=== PATIENT | female | born 1985 | race African-American/Black ===

== ENCOUNTER 2019-02-17 14:51 | Inpatient (IN) | payer OTHER ==
[~2019-02-17] VITALS: Ht 177.8 cm; Wt 231.3 kg
[2019-02-17 15:15] VITALS: BP_SYST 98
--- NOTE | 2019-02-17 15:15 | NUR ---
Patient to ER bed 5 to on hospital bed gown for evaluation. Side rails up. Report given to ROSE MARIE Howell.
--- NOTE | 2019-02-17 15:30 | NUR ---
Patient presented to ER with c/o left lower leg pain. Patient A&Ox4, afebrile, skin pink and warm, BIB BLS from [facility], Pain 2/10 left lower leg wound, denies, N/V/D, toes pink and warm. PAtient states she wants to be evaluated for Wound care management and pain management . Patient had left lower leg George procedure.
--- NOTE | 2019-02-17 15:31 | NUR ---
ER Dr. Anders at bedside examining patient.
[2019-02-17 17:42] LABS: BASOPHILS # (AUTO) 0.1 K/uL (0.0-0.2); BASOPHILS % (AUTO) 0.6 % (0.0-2.0); EOSINOPHILS # (AUTO) 0.3 K/uL (0.0-0.4); MEAN CORPUSCULAR HEMOGLOBIN 24 pg (27-31); MEAN CORPUSCULAR HGB CONC 32 % (32-36); NEUTROPHILS # (AUTO) 5.5 K/uL (1.8-7.7); WHITE BLOOD COUNT (AUTO) 9.2 K/uL (4.8-10.8)
[2019-02-17 17:48] LABS: CREATININE 1.09 mg/dL (0.55-1.30); POTASSIUM 3.7 mmol/L (3.5-5.1)
[2019-02-17 17:52] LABS: PROTHROMBIN TIME 10.5 SECS (9.5-12.5)
[2019-02-17 17:56] LABS: EOSINOPHILS % (AUTO) 2.9 % (0.0-4.0); HEMOGLOBIN 8.6 g/dL (12.0-16.0); LYMPHOCYTES # (AUTO) 2.6 K/uL (1.0-5.5); LYMPHOCYTES % (AUTO) 28.2 % (20.5-51.5); MEAN CORPUSCULAR VOLUME 76 fL (79.0-98.0); MONOCYTES # (AUTO) 0.8 K/uL (0.0-1.0); MONOCYTES % (AUTO) 8.8 % (1.7-9.3); NEUTROPHILS % (AUTO) 59.5 % (40.0-70.0); PLATELET COUNT (AUTO) 499 K/uL (130-430); RED BLOOD CELL COUNT(AUTO) 3.57 MIL/uL (4.2-6.2); RED CELL DISTRIBUTION WIDTH 20.5 % (9.0-15.0)
[2019-02-17 18:03] LABS: ALBUMIN 2.1 g/dL (3.4-4.8); TOTAL BILIRUBIN 0.6 mg/dL (0.0-1.0)
--- NOTE | 2019-02-17 18:23 | NUR ---
PT reports 10/10 pain to R lower leg and requests pain medication. Dr. Anders notified.
[2019-02-17] MEDS ORDERED: DIPHENHYDRAMINE INJ 50 MG/ML VIAL IVP ONE (19:00)
[2019-02-17] MEDS ORDERED: MORPHINE 4 MG/ML INJ. SYRINGE IVP ONE (19:00)
--- NOTE | 2019-02-17 19:02 | NUR ---
Pain medication given per order, patient A&Ox4.
--- NOTE | 2019-02-17 19:13 | NUR ---
Report given to Jimmie TROTTER
[2019-02-17] MEDS ORDERED: LEVOFLOXACIN 500 MG/D5W 100 ML IV ONE (19:30)
[2019-02-17] MEDS ORDERED: HYDR1SYR7 IJ (19:37)
[2019-02-17] MEDS ORDERED: GABA300S PO (19:38)
[2019-02-17] MEDS ORDERED: DOCU250C71 PO (19:38)
[2019-02-17] MEDS ORDERED: NORT10CA PO (19:39)
--- NOTE | 2019-02-17 19:40 | NUR ---
Medication reconciliation completed with information provided by patient. Any prior medication reconciliation on file was reviewed and corrected.
--- NOTE | 2019-02-17 19:45 | NUR ---
Note dhaval in EDM - 02/17/19 at 2155 by [email or web address] Patient will be admitted to care of A Paliwal. Admitted to MST unit. Will call for bed. Belongings list completed. Summary report printed. Report will be given at bedside.
--- NOTE | 2019-02-17 19:50 | NUR ---
Note dhaval in ED - 02/17/19 at 2155 by [email or web address] Pt on tele hold at this time dur to no staffing on MST. Will cont to monitor pt.
--- NOTE | 2019-02-17 19:50 | NUR ---
Pt on tele hold at this time due to no staffing on MST. Will cont to monitor pt.
--- NOTE | 2019-02-17 20:00 | NUR ---
Pt refusing US at this time. BERNARD BARBA made aware.
--- NOTE | 2019-02-17 21:45 | NUR ---
Pt will be admitted to bed 106 on [facility].
[2019-02-17] MEDS ORDERED: ACETAMINOPHEN 325 MG TABLET PO PRN (22:45)
[2019-02-17] MEDS ORDERED: MORPHINE 2 MG/ML INJ. SYRINGE IVP PRN (22:45)
[2019-02-17] MEDS ORDERED: HYDROcodone/ACETAMIN 10-325 MG TAB PO PRN (22:45)
[2019-02-17] MEDS ORDERED: LORazepam 2 MG/ML VIAL IVP PRN (22:45)
[2019-02-17] MEDS ORDERED: HYDROcodone/ACETAMIN 5-325 MG TAB (NORCO/ VICODIN) PO PRN (22:45)
[2019-02-17] MEDS ORDERED: ONDANSETRON HCL 4 MG/2 ML VIAL IVP PRN (22:45)
--- NOTE | 2019-02-17 22:48 | NUR ---
Transfer to [facility] via ACLS protocol. Licensed nurse present. IV present no signs or symptoms of infiltration. No signs of acute distress or discomfort noted.
--- NOTE | 2019-02-17 22:48 | NUR ---
ADMISSION: The patient, LATRICE COREAS, 33 y/o, F admitted by JENNIFER JACOBO MD, was given written information regarding hospital policies, unit procedures and contact persons.
--- NOTE | 2019-02-17 23:01 | NUR ---
Romel Zelaya Dr. s/w Jo Ann
[2019-02-17] MEDS ORDERED: HYDROmorphone 1 MG INJ. 1 MG/ML AMPUL IVP PRN (23:15)
[2019-02-17 23:30] VITALS: BP_SYST 99
[2019-02-17] MEDS: D5/0.45 NS 1,000 ML IV SCH (23:55)
[2019-02-18] MEDS ORDERED: CLINDAMYCIN 600 MG in D5W 50 ML IV SCH ×2
--- NOTE | 2019-02-18 00:10 | NUR ---
Pt stated she is resistant to Clindamycin and refused it. Pt stated she can take Vancomycin, Cipro and Meropenem. Pt was informed Dr. Lopez would be paged.
--- NOTE | 2019-02-18 00:12 | NUR ---
PageRomel Cruz Dr. s/w Albino
[2019-02-18 00:25] VITALS: BP_SYST 99
--- NOTE | 2019-02-18 00:29 | NUR ---
Dr. Lopez called back and was informed pt refused Clindamycin and also stated she can receive Vancomycin, Cipro and Meropenem. Dr. Lopez ordered IV Levaquin.
[2019-02-18 00:40] VITALS: BP_SYST 114
[2019-02-18] MEDS: HYDROmorphone 2 MG/ML VIAL IVP PRN ×6 (00:47→23:30)
--- NOTE | 2019-02-18 00:47 | NUR ---
Pt was crying out loud c/o 10/10 pain in left leg. Dilaudid 2mg was given IVP with relief. IVF is infusing well via SONIA PICC. Fall and safety precautions are in place.
--- NOTE | 2019-02-18 01:00 | NUR ---
Pt was assisted in transferring from regular hospital bed to air mattress bed that was ordered by smokehouse operator. Pt initially refused to transfer to the air mattress bed, stating the fabric irritates her skin and she gets boils from it. Pt stated the only way she would get on the bed is to cover the bed completely with 2 flat sheets and 2 blankets with the sheets and blankets tucked underneath the bed. physical therapy supervisor Helene was notified and Helene stated it is okay to cover the bed per pt's request. RN and ADULT SERVICES LIBRARIAN covered the air mattress bed with 2 flat sheets and 2 blankets and then tucked them underneath the bed before assisting pt with the transfer to the air mattress.
[2019-02-18] MEDS ORDERED: LEVOFLOXACIN 500 MG/D5W 100 ML IV ONE (01:14)
--- NOTE | 2019-02-18 01:30 | NUR ---
Photo of left leg wound was taken, followed by wound care. Wound has multiple areas of pinkish, reddish and blackish tissues. Moderate amount of light pinkish and yellowish drainage noted. No odor noted. Wound was cleansed with normal saline and pat dried. Multiple Oil emulsion gauze dressings were applied due to the large size of the wound, followed by multiple ABD pads. Wound was then wrapped with six large Kristen wraps. Pt was premedicated with IV Dilaudid prior to dressing change.
--- NOTE | 2019-02-18 04:02 | NUR ---
CONSULTATION PAGED/CALLED Reason for Consultation: WOUND INFECTION Person Who was Notified: TWAN Consulting Physician: LEAH Lining Closer Specialty: ID Ordering Physician: Андрей JACOBO
--- NOTE | 2019-02-18 06:14 | NUR ---
Pt c/o left leg pain and was crying out loud. Pt stated pain is 8/10. Dilaudid 2mg was given IV with relief. Fall and safety precautions are in place.
--- NOTE | 2019-02-18 06:50 | NUR ---
Pt is awake and resting in bed without any distress noted. All pt's needs were attended to. Will endorse to day shift nurse.
--- NOTE | 2019-02-18 07:15 | NUR ---
sbar report received at the bedside. patient aaox 4. morbid obese. vitals signs stable. afebrile. breathing even and unlabored. abdomen soft and non distended. has picc line on the rt upper arm 2 lumen dry/intact. has bariatric bed in low position, alarmed and locked. call lights within reach. has dressing on the left leg. dry and intact.
[2019-02-18] MEDS: DOCUSATE SODIUM 250 MG CAPSULE PO SCH ×2 (09:27→21:30)
--- NOTE | 2019-02-18 09:30 | NUR ---
patient refused to be changed at this time. said later.
[2019-02-18] MEDS: D5/0.45 NS 1,000 ML IV SCH ×3 (10:05→23:45)
[2019-02-18 10:49] LABS: BASOPHILS % (AUTO) 0.5 % (0.0-2.0); EOSINOPHILS # (AUTO) 0.4 K/uL (0.0-0.4); HEMATOCRIT 24.4 % (36-48); HEMOGLOBIN 7.7 g/dL (12.0-16.0); LYMPHOCYTES # (AUTO) 2.1 K/uL (1.0-5.5); LYMPHOCYTES % (AUTO) 30.3 % (20.5-51.5); MEAN CORPUSCULAR HEMOGLOBIN 24 pg (27-31); MEAN CORPUSCULAR HGB CONC 32 % (32-36); MEAN CORPUSCULAR VOLUME 76 fL (79.0-98.0); MONOCYTES # (AUTO) 0.8 K/uL (0.0-1.0); MONOCYTES % (AUTO) 11.1 % (1.7-9.3); NEUTROPHILS # (AUTO) 3.8 K/uL (1.8-7.7); NEUTROPHILS % (AUTO) 53.1 % (40.0-70.0); PLATELET COUNT (AUTO) 427 K/uL (130-430); RED BLOOD CELL COUNT(AUTO) 3.23 MIL/uL (4.2-6.2); RED CELL DISTRIBUTION WIDTH 20.7 % (9.0-15.0); WHITE BLOOD COUNT (AUTO) 7.1 K/uL (4.8-10.8)
[2019-02-18 11:12] LABS: CALCIUM 7.5 mg/dL (8.4-11.0); CREATININE 0.84 mg/dL (0.55-1.30); PHOSPHORUS 4.6 mg/dL (2.7-4.5); POTASSIUM 3.6 mmol/L (3.5-5.1)
--- NOTE | 2019-02-18 12:30 | NUR ---
DC Planning: Phoned and faxed pt infor to [facility] transfer ctr ,attn Rubi tel #[phone]. Per Rubi: she will present the case to dr. Taz Griffith and will call back this PM to update the admission status. She warns that [facility] is very full today but will take the pt becuase she is our client. CM to f/u.
[2019-02-18 12:36] VITALS: BP_SYST 106
--- NOTE | 2019-02-18 14:00 | NUR ---
patient resting and stable.
--- NOTE | 2019-02-18 15:05 | NUR ---
Dietitian Recommendations *Recommend Cardiac diet w/ Alberto BID and Ensure Enlive BID. ONS and modulars will provide additional 860 kcal, 45 gm protein daily. *Encourage pt to increase PO intake. Please see nutritional assessment for details. GEROGIA, RD
--- NOTE | 2019-02-18 16:11 | NUR ---
WOUND EVALUATION: Wound Consult received from Dr. Romel Lopez. Thank you, Dr. Lopez, for the consult. Patient received in a Compella Bariatric Bed with a low air-loss mattress, asleep (alert and oriented when awoke). Patient is able to turn independently. Galindo Score is a 16. 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 Recent Labs: WBC 7.1, RB.23, hemoglobin 7.7, hematocrit 24.4, glucose 114, calcium 7.5, phosphorus 4.6, albumin 2.1. Microbiology: Blood results in progress. mRSA screen results in progress. Intrinsic factors that delay wound healing: Lymphedema, Hypoalbuminemia. Extrinsic factors that delay wound healing: Decreased mobility. Wound Assessment: 1. 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 Wound bed has 85% red tissue, 15% yellow tissue. No odor, no drainage. Bijal-wound intact. multiple islands of skin growth present throughout extremity. Measures 35.5 cm by approximately 50.0 cm (wound area covers entire circumference of calf; Width estimated at 50.0 cm secondary to patient was in pain and moving leg constantly). Recommend: Cleanse wound with normal saline. Apply SurePrepto bijal-wound. Cover with foam dressing. Perform wound care daily, and as needed for dressing soiling or dislodgement. Also recommend: Encourage and assist patient as needed with repositioning every 2 hours with pillow support and off-load pressure areas with pillows for pressure re-distribution. Offload, elevate and float bilateral heels with pillows. Perform skin care and monitor skin integrity Q shift. Use moisture barrier cream on buttocks and other moisture susceptible areas QID and as needed for soiling. Maintain patient on a low air-loss mattress. Addendum: 02/24/19 at 1520 by Leonardo Acevedo RN Error. Wound Care orders should be: (Pre-medicate for wound care) 1. Cleanse wound with normal Saline. 2. Apply SurePrep to bijal-wound. 3. Cover wound with Oil Emulsion dressings. 4. Cover with ABD pads. 5. Wrap with jonatan wrap. 6. Wrap from toes to knee with judd bandage (1/3 overlap). Perform wound care daily, and prn for dressing soiling or dislodgment.
--- NOTE | 2019-02-18 16:15 | NUR ---
[facility] CAME AND EVALUATE THE WOUND ON THE LEFT LEG. DRESSING DONE.
[2019-02-18 16:45] VITALS: BP_SYST 110
[2019-02-18] MEDS ORDERED: VANCOMYCIN HCL 1 GM/NS PREMIX 250 ML IV ONE (17:00)
--- NOTE | 2019-02-18 18:03 | NUR ---
PATIENT HAS A VISITOR AT THE BEDSIDE.
--- NOTE | 2019-02-18 19:31 | NUR ---
sbar report given to Neelima TROTTER
--- NOTE | 2019-02-18 20:00 | NUR ---
RECIEVED REPORT, A/O/X/4, RESPIRATIONS EVEN AND UNLABORED, ROOM AIR, PICC LINE WITH DOUBLE LEUMEN PATENT AND INTACT IN TIERRA, D5 1/2 NS INFUSING @ 100ML/HR IN PICCLINE,USES BEDPAN TO URINATE, ABLE TO ASSIST STAFF WITHALL ADL'S, TURNS SELF OFTEN POSSIBLE, LEFT LEG WITH DRSG IN PLACE, MEDICATED WITH DILAUDID 2MG IVP FOR C/O SHARP, SHOOTING PAINS IN LEFT LEG WOUND, TOLERATED EVENING MEAL 100%WILL CONTINUE TO MONITOR FOR ANY FURTHER S/S OF DISTRESS.
[2019-02-18] MEDS ORDERED: LEVOFLOXACIN 500 MG/D5W 100 ML IV SCH (21:00)
[2019-02-18] MEDS: DOXYCYCLINE HYCLATE 100 MG CAPSULE PO SCH (21:31)
[2019-02-19 01:24] VITALS: BP_SYST 116
[2019-02-19] MEDS: HYDROmorphone 2 MG/ML VIAL IVP PRN ×5 (03:47→21:04)
--- NOTE | 2019-02-19 04:00 | NUR ---
AWAKE C/O PAIN IN LEFT LEG MEDIATED WITH DILAUDID 2MG IVP, PAIN SCALE 10/10, LEFT LEG DRSG RE-ENFORCED WITH ABD PAD AND KERLIX, WILL CONTINUE TO MONITOR.
--- NOTE | 2019-02-19 06:47 | NUR ---
CLOSING NOTE: PATIENT RESTED OFF AND ON DURING THE NITE, STATES PAIN IS VERY BAD WHEN SHE TRIES TO MOVE ABOUT IN BED, RECIEVED TWO INJECTIONS OF DILAUDID 2 MG IVP FOR THE PAIN @ 10/10. BILATERAL DRSG REMAIN INTACT ON LOWER EXTRMITIES, PICC LINE PATENT AND INTACT IN TIERRA [facility], SCHEDULED FOR 2D ECHO THIS AM
--- NOTE | 2019-02-19 07:25 | NUR ---
sbar report at the bedside. patient asleep. has picc line on the rt upper arm. with D51/2NS 100cc/hr infusing on well. breathing even and unlabored. abdomen soft and non distended. dressing on the left leg dry and intact. bed low position, alarmed and locked. call lights within reach. will continue to monitor patients status.
[2019-02-19] MEDS: DOXYCYCLINE HYCLATE 100 MG CAPSULE PO SCH ×2 (08:23→20:24)
[2019-02-19] MEDS: DOCUSATE SODIUM 250 MG CAPSULE PO SCH ×2 (08:23→20:24)
--- NOTE | 2019-02-19 08:28 | NUR ---
DILAUDID 2MG IV GIVEN. MADE COMFORTABLE. VITALS SIGNS STABLE. AFEBRILE
--- NOTE | 2019-02-19 09:01 | NUR ---
DC Planning: f/u with [facility] transfer ctr, per Oxana, the case is being reviewed by dr. Griffith. She stated " there should not be any problem bringing the pt back, but at this time [facility] is operating at full capacity". CM to f/u for bed availability.
[2019-02-19 09:30] VITALS: BP_SYST 122
[2019-02-19] MEDS: D5/0.45 NS 1,000 ML IV SCH (12:31)
[2019-02-19 12:35] VITALS: BP_SYST 119
--- NOTE | 2019-02-19 14:15 | NUR ---
DC Planning: s/w dr. Lopez about the dcp barriers: #1. no bed available at [facility], 2. No Medicare days and the pt is on LSRV 9 days left. The pt has [facility] as secondary, 3. pt will need the md reeval for next level of care for wound care, IV abx or can be dc to snf vs. outpatient f/u at [facility] for wound management. Per the md. he will reeval for possible dc to snf. CM to f/u.
--- NOTE | 2019-02-19 15:00 | NUR ---
DC Planning: Called [facility] # [phone], s/w Brit , vendor analyst, requesting [facility]. Brit asking me to call back in 30 minutes due to her computer system is down. She was unable to create the call and get pt info. Addendum: 02/19/19 at 1642 by Kristen Lai RN Contacted [facility] transfer ctr: s/w Fernandez who will open the case and to have CM call once assigned. [facility] # [phone]. CM requesting pt transfer to [facility].
[2019-02-19 16:38] VITALS: BP_SYST 127
--- NOTE | 2019-02-19 17:05 | NUR ---
dilaudid 2 mg iv given by Kellee Charge nurse.
--- NOTE | 2019-02-19 18:04 | NUR ---
no dressing done at this time. patient said i am okay. perhaps later.
--- NOTE | 2019-02-19 19:20 | NUR ---
please follow up culture to the wound. thanks
--- NOTE | 2019-02-19 19:26 | NUR ---
endorsed to incoming nurse Orlin TROTTER
[2019-02-19 20:00] VITALS: BP_SYST 126
--- NOTE | 2019-02-19 23:06 | NUR ---
received pt on bed. talking to cellphone. no pain. stable. needs attended. call light in reach. right picc line needs new dressing change. will follow-up.
--- NOTE | 2019-02-20 00:08 | NUR ---
dressing change done to right upper arm picc line- pt tolerate well. done aseptically.
[2019-02-20 00:36] VITALS: BP_SYST 146
[2019-02-20] MEDS: HYDROmorphone 2 MG/ML VIAL IVP PRN ×6 (01:20→23:12)
[2019-02-20] MEDS: D5/0.45 NS 1,000 ML IV SCH ×3 (02:00→22:00)
--- NOTE | 2019-02-20 02:09 | NUR ---
dressing change done to left lower leg, wound culture specimen collected and send to lab. pt tolerate well. needs attended. will follow up.
--- NOTE | 2019-02-20 04:03 | NUR ---
sleeping, no distress. no sob. no pain. stable. call light in reach. safety on. will follow-up.
--- NOTE | 2019-02-20 06:04 | NUR ---
pt is awake, alert. no pain, no sob. am labs done by lab. tech. needs attended. safety on. will follow-up.
[2019-02-20 06:07] LABS: BASOPHILS # (AUTO) 0.1 K/uL (0.0-0.2); BASOPHILS % (AUTO) 0.7 % (0.0-2.0); EOSINOPHILS # (AUTO) 0.4 K/uL (0.0-0.4); EOSINOPHILS % (AUTO) 4.3 % (0.0-4.0); HEMATOCRIT 23.8 % (36-48); HEMOGLOBIN 7.5 g/dL (12.0-16.0); LYMPHOCYTES # (AUTO) 2.7 K/uL (1.0-5.5); LYMPHOCYTES % (AUTO) 26.1 % (20.5-51.5); MEAN CORPUSCULAR HEMOGLOBIN 24 pg (27-31); MEAN CORPUSCULAR HGB CONC 31 % (32-36); MEAN CORPUSCULAR VOLUME 76 fL (79.0-98.0); MONOCYTES # (AUTO) 0.6 K/uL (0.0-1.0); MONOCYTES % (AUTO) 5.7 % (1.7-9.3); NEUTROPHILS # (AUTO) 6.4 K/uL (1.8-7.7); NEUTROPHILS % (AUTO) 63.2 % (40.0-70.0); PLATELET COUNT (AUTO) 446 K/uL (130-430); RED BLOOD CELL COUNT(AUTO) 3.13 MIL/uL (4.2-6.2); RED CELL DISTRIBUTION WIDTH 20.6 % (9.0-15.0)
[2019-02-20 06:51] LABS: C-REACTIVE PROTEIN QUANT 4.8 mg/dL (0-0.5); CALCIUM 7.4 mg/dL (8.4-11.0); CREATININE 0.89 mg/dL (0.55-1.30); POTASSIUM 3.7 mmol/L (3.5-5.1)
[2019-02-20 06:59] LABS: WHITE BLOOD COUNT (AUTO) 10.2 K/uL (4.8-10.8)
--- NOTE | 2019-02-20 07:20 | NUR ---
closing: pt is sleeping, no sign of pain. no sob. stable. needs attended the whole shift. call light in reach. bedside report given to am rn.
--- NOTE | 2019-02-20 08:00 | NUR ---
0800 received patient lying in bed deeply asleep buit can be arousable denies any pain at this time able to move her extremities and able to express her needs refused any Ivs she has picc line via right upper arm with 2 lumen intact and patent
[2019-02-20 08:24] LABS: ERYTHROCYTE SEDIMENTATION RATE 77 MM/HR (0-20)
--- NOTE | 2019-02-20 09:00 | NUR ---
0900 breakfast served ate good 90 % of food consumed
[2019-02-20] MEDS: DOCUSATE SODIUM 250 MG CAPSULE PO SCH ×2 (09:46→21:31)
[2019-02-20] MEDS: DOXYCYCLINE HYCLATE 100 MG CAPSULE PO SCH ×2 (09:46→21:31)
--- NOTE | 2019-02-20 10:00 | NUR ---
1000 pain med was given with relief wound dressing intact
--- NOTE | 2019-02-20 10:00 | NUR ---
1000 able to repositioned self a self murray but needs assist ti void
--- NOTE | 2019-02-20 12:00 | NUR ---
1200 Assist with bedpan needs to void needs attended to.
--- NOTE | 2019-02-20 13:31 | NUR ---
CONSULTATION PAGED REASON FOR CONSULTATION:ANEMIA WAS CONSULT CALLED?Y PERSON WHO WAS NOTIFIED:ALONDRA CONSULTING PHYSICIAN:RENAE ROSADOHASH CYCLE CONSULTANT SPECIALTY:HEMATOLOGY CYCLE CONSULTANT PHONE NUMBER:[phone] REQUESTING PHYSICIAN:JENNIFER FUCHS
--- NOTE | 2019-02-20 14:00 | NUR ---
1400 seen by manager of case awaiting for transfer to [place] for continuation of care
[2019-02-20 15:05] VITALS: BP_SYST 116
--- NOTE | 2019-02-20 16:24 | NUR ---
1600 Pain med given slept thereafter
--- NOTE | 2019-02-20 18:00 | NUR ---
1800 patient is aware that she is going to be transferred to [place] on Friday
--- NOTE | 2019-02-20 18:00 | NUR ---
1800 refused to be connected to IV
[2019-02-20 18:05] VITALS: BP_SYST 118
--- NOTE | 2019-02-20 19:00 | NUR ---
1900 report given to ki TROTTER
--- NOTE | 2019-02-20 19:30 | NUR ---
initial notes: pt is on bed, resting. no pain. not distress. wakes up when vital sign is taken. picc line to right upper arm is intact. dressing to left leg is intact. discuss to pt plan of care. pt verbalized understanding. needs attended, call light in reach. safety on. will follow-up.
[2019-02-20 19:45] VITALS: BP_SYST 111
--- NOTE | 2019-02-20 20:02 | NUR ---
VOLODYMYR LATE ENTRY DUE TO PATIENT CARE RECEIVED CALL FROM [facility] VOLODYMYR IN AM ASKING ABOUT PATIENT CONDITION. NO FOLLOW UP CALL FROM [facility] RECEIVED AFTER
--- NOTE | 2019-02-20 22:00 | NUR ---
AWAKE, WATCHING TO HER CELLPHONE. STABLE. NOT CALLING FOR PAIN AT THIS TIME.
--- NOTE | 2019-02-21 | NUR ---
sleeping, no sob. no distress. stable. call light in reach. will follow-up.
--- NOTE | 2019-02-21 02:00 | NUR ---
resting. no distress. no sob. stable. call light in reach. will follow-up.
[2019-02-21 02:33] VITALS: BP_SYST 123
[2019-02-21] MEDS: HYDROmorphone 2 MG/ML VIAL IVP PRN ×5 (03:08→20:08)
--- NOTE | 2019-02-21 04:00 | NUR ---
sleeping, no sob, no pain. stable. call light in reach. safety on. will follow up.
--- NOTE | 2019-02-21 06:00 | NUR ---
sleeping, no pain. no sob, stable. call light in reach. will follow-up.
--- NOTE | 2019-02-21 07:25 | NUR ---
closing: sleeping. no sign of pain. no sob. stable. picc line at right ua. inact. needs attended the whole shift. bedside report given to am rn.
[2019-02-21 07:50] VITALS: BP_SYST 114
--- NOTE | 2019-02-21 07:50 | NUR ---
INITIAL ROUNDS Received pt AAOx4, no s/s resp distress, c/o pain to LLE-will check on pain medications. Pt declining IVF, pt educated on the purpose for IVF, pt stated she will drink plenty of p.o. fluids-will inform MD. LLE elevated on a pillow, dressing clean, dry and intact. Plan of care for the day reviewed with pt-pt verbalized her understanding. Pain management, disease process, skin and safety discussed-teach back done. Pt on specialty bed with air mattress. Call light within reach.
[2019-02-21] MEDS: D5/0.45 NS 1,000 ML IV SCH ×2 (08:00→17:35)
[2019-02-21 08:24] LABS: BASOPHILS # (AUTO) 0.1 K/uL (0.0-0.2); BASOPHILS % (AUTO) 1.1 % (0.0-2.0); EOSINOPHILS # (AUTO) 0.5 K/uL (0.0-0.4); EOSINOPHILS % (AUTO) 4.5 % (0.0-4.0); HEMATOCRIT 24.4 % (36-48); LYMPHOCYTES # (AUTO) 2.5 K/uL (1.0-5.5); LYMPHOCYTES % (AUTO) 24.2 % (20.5-51.5); MEAN CORPUSCULAR HEMOGLOBIN 24 pg (27-31); MEAN CORPUSCULAR HGB CONC 32 % (32-36); MEAN CORPUSCULAR VOLUME 76 fL (79.0-98.0); MONOCYTES # (AUTO) 0.5 K/uL (0.0-1.0); MONOCYTES % (AUTO) 5.2 % (1.7-9.3); NEUTROPHILS # (AUTO) 6.7 K/uL (1.8-7.7); PLATELET COUNT (AUTO) 432 K/uL (130-430); RED BLOOD CELL COUNT(AUTO) 3.23 MIL/uL (4.2-6.2); RED CELL DISTRIBUTION WIDTH 20.5 % (9.0-15.0); RETICULOCYTE COUNT 2.7 % (0.5-1.5); WHITE BLOOD COUNT (AUTO) 10.4 K/uL (4.8-10.8)
[2019-02-21 08:25] LABS: HEMOGLOBIN 7.7 g/dL (12.0-16.0)
[2019-02-21 08:32] LABS: C-REACTIVE PROTEIN QUANT 3.7 mg/dL (0-0.5); CALCIUM 7.8 mg/dL (8.4-11.0); CREATININE 0.8 mg/dL (0.55-1.30); POTASSIUM 3.8 mmol/L (3.5-5.1)
[2019-02-21 08:37] LABS: TOTAL IRON BIND. CAPACITY 144 ug/dL (250-450)
[2019-02-21 09:05] LABS: ERYTHROCYTE SEDIMENTATION RATE 86 MM/HR (0-20)
[2019-02-21] MEDS: DOCUSATE SODIUM 250 MG CAPSULE PO SCH ×2 (09:41→20:20)
[2019-02-21] MEDS: DOXYCYCLINE HYCLATE 100 MG CAPSULE PO SCH ×2 (09:41→20:20)
[2019-02-21] MEDS ORDERED: POLYETHYLENE GLYCOL 3350, 17 GM/ POWD.PACK PO ONE (12:15)
--- NOTE | 2019-02-21 12:40 | NUR ---
Nutrition F/U RD reviewed pt's current EMR including diet Hx, physician notes, nursing notes, pertinent labs/meds/procedures, care trends and care activity. Current Diet Order: Regular diet x 0 days Subjective information: Pt seen sleeping in bed earlier today. Pt did not speak w/ RD for long and stated that she wanted to sleep. For breakfast, pt's diet order was Cardiac w/ Ensure Enlive BID and Alberto BID. Pt reported that ONS and modular were never served to her. RD followed up with FNS staff. Per provider's notes, pt is awaiting transfer to [facility]. Current PO intake: Good 82% average of 3 meals 02/19/19 Estimated Energy Expenditure (kcals/day) 6408-7308 kcal/day (25-30 kcal/kg IBW for Morbid Obesity) Estimated Protein Required (g/day) 164-218 gm/day (1.5-2 gm/kg IBW for morbid obesity and wound healing) Estimated Fluid Required (l/day) 2.7-3.2 L/day (1ml/calorie for wound healing) Problem/Etiology/Signs/Symptoms Morbid obesity r/t poor nutrition quality of life AEB BMI 73 gk/m2 and 340% IBW. (*ongoing) Increased nutrient needs r/t metabolic demands AEB estimated calorie and protein needs for wound healing. (*ongoing) Expected Outcomes/Goals Monitor appetite and PO intake w/ goal of pt meeting at least 75% of estimated nutritional needs, labs trending WNL, normal GI function, skin integrity/wt maintenance. Dietitian Recommendations *Recommend continuing Regular diet per MD orders. *Recommend Alberto BID and Ensure Enlive BID. ONS and modulars will provide additional 860 kcal, 45 gm protein daily. *Encourage pt to increase PO intake. Follow Up High Risk: F/U in 2-3days
[2019-02-21 12:50] VITALS: BP_SYST 113
--- NOTE | 2019-02-21 14:08 | NUR ---
ROUNDS/AMBULATE Pt ambulated to the bathroom with standby assist. Pt had a large BM, noted some blood in the toilet-pt stated she is on her period. Pt assisted back into bed, LLE elevated on pillow dressing clean, dry and intact. Needs met, call light within reach.
--- NOTE | 2019-02-21 17:05 | NUR ---
WOUND CARE Old dressings removed from LLE, saline used to remove dressing in places to prevent skin tear. Area cleansed with normal saline, oil emulsion dressing placed over entire calf area posterior and anterior, foam dressing placed over oil dressings, abd dressings placed over foam dressings and dressings secured in place with jonatan wrap. LLE elevated on pillow. Pt tolerated well. Noted wound with 85% pink tissue, 15 % yellow tissue, no odor, minimal drainage, no necrotic issue noted. Measures 25 cm x 11 cm. Call light within reach.
--- NOTE | 2019-02-21 18:02 | NUR ---
CLOSING NOTE Pt sitting up in bed eating her dinner. No s/s resp distress, no c/o pain or discomfort at this time. LLE elevated on pillow. Needs met, call light within reach.
[2019-02-21 18:10] VITALS: BP_SYST 105
--- NOTE | 2019-02-21 19:30 | NUR ---
OPENING NOTES RECEIVED PATIENT IN BED AAO X4. BREATHING UNLABORED ON ROOM AIR. NO C/O PAIN AT THIS TIME. BED IN LOWEST LOCKED POSITION WITH ALARM ON. CALL LIGHT WITH IN REACH.
[2019-02-21 20:04] VITALS: BP_SYST 114
--- NOTE | 2019-02-21 20:08 | NUR ---
PIN MGT PATIENT MEDICATED WITH DILAUDID FOR C/O LEFT LEG PAIN. VITAL SIGNS STABLE.
[2019-02-22 00:12] VITALS: BP_SYST 100
[2019-02-22] MEDS: HYDROmorphone 2 MG/ML VIAL IVP PRN ×6 (00:39→21:32)
--- NOTE | 2019-02-22 00:39 | NUR ---
PAIN MGT PATIENT MEDICATED WITH DILAUDID FOR C/O LEFT LEG PAIN. VITAL SIGNS STABLE. CALL LIGHT WITH IN REACH.
--- NOTE | 2019-02-22 03:19 | NUR ---
ROUNDS PATIENT RESTING IN BED. NO DISTRESS NOTED. BED ALARM ON. CALL LIGHT WITH IN REACH.
[2019-02-22] MEDS: D5/0.45 NS 1,000 ML IV SCH ×2 (04:00→14:00)
[2019-02-22 04:56] VITALS: BP_SYST 110
--- NOTE | 2019-02-22 05:02 | NUR ---
PAIN MGT PATIENT MEDICATED WITH DILAUDID FOR C/O LEFT LEG PAIN 12/15. VITAL SIGNS STABLE. CALL LIGHT WITH IN REACH.
--- NOTE | 2019-02-22 06:46 | NUR ---
CLOSING NOTES PATIENT RESTING IN BED. NO DISTRESS NOTED. PATIENT NEEDS ATTENDED. SAFETY PRECAUTIONS IN PLACED. CALL LIGHT WITH IN REACH.
[2019-02-22] MEDS ORDERED: IRON DEXTRAN COMPLEX 25 MG in NS 50 ML IV ONE (07:15)
--- NOTE | 2019-02-22 07:36 | NUR ---
RN OPENING NOTE REPORT WAS ENDORSED BY NIGHT NURSE. PATIENT IS AWAKE AND ALERT LAYING IN BED WATCHING HER CELL PHONE. PATIENT IS REQUESTING A HOT TEA PROVIDED TO PATIENT REQUESTED. PATIENT EDUCATED FUNERAL DIRECTOR/EMBALMER/OWNER LIGHT FOR ASSISTANCE, CALL LIGHT IS WITH PATIENT. PATIENT HAS NO COMPLAINTS AT THIS TIME. PATIENT BREATHING IS EQUAL AND NON LABORED. PATIENT NO OTHER NEEDS AT THIS TIME. Addendum: 02/22/19 at 0755 by Elsa Espinoza RN PATIENT IS REFUSING TO HAVE BED LOWERED TO LOWEST POSITION. PATIENT EDUCATED ON SAFETY BUT IS STILL REFUSING. PATIENT. LAB INFORMATION SERVICES TECH IS STATING THERE UNABLE TO REMOVE BLOOD DO NOT SEE VEIN. PATIENT STATES THAT THE INFORMATION SERVICES TECH DID NOT YUSUF TOUCH HER OR LOOK. LAB INFORMATION SERVICES TECH STATES HE WILL HAVE THE NEXT SHIFT COME AND TRY WHEN THEY GET HERE.
[2019-02-22 07:51] VITALS: BP_SYST 113
--- NOTE | 2019-02-22 08:21 | NUR ---
TEST DOSE OF INFED PATIENT IS AWAKE AND ALERT EDUCATED TO USE CALL LIGHT IF SHE STARTS TO EXPERIENCE ANY ITCHING, RASH, SOB, DISCOMFORT. PATIENT VERBALIZED UNDERSTANDING. PATIENT HAS CALL LIGHT WITH HER. PATIENT BREAKFAST TRAY AT BED SIDE. PATIENT HAS NO OTHER NEEDS AT THIS TIME. WILL CONTINUE TO MONITOR. PATIENT STATES SHE HAS RECEIVED AN INFED INFUSION BEFORE WITH NO REACTIONS.
[2019-02-22] MEDS ORDERED: IRON DEXTRAN COMPLEX 75 MG in NS 100 ML IV ONE (09:00)
[2019-02-22] MEDS: DOCUSATE SODIUM 250 MG CAPSULE PO SCH ×2 (09:01→20:52)
[2019-02-22] MEDS: DOXYCYCLINE HYCLATE 100 MG CAPSULE PO SCH ×2 (09:01→20:52)
[2019-02-22] MEDS: POLYETHYLENE GLYCOL 3350, 17 GM/ POWD.PACK PO SCH (09:01)
--- NOTE | 2019-02-22 09:14 | NUR ---
MEDICATION PATIENTS SCHEDULED MEDICATION GIVEN ORDERED. PATIENT ALSO COMPLAINS OF PAIN. MEDICATED FOR PAIN. OCC THER WAS ABLE TO OBTAIN BLOOD SAMPLE. PATIENT STATES NO REACTION FROM THE TEST DOSE OF INFED. SCHEDULED DOSE GIVEN. CALL LIGHT IS WITH PATIENT. EDUCATED TO USE FOR ASSISTANCE. PATIENT IS REFUSING TO HAVE BED IN LOWEST POSITION. EDUCATED PATIENT ON SAFETY. NO OTHER NEEDS AT THIS TIME. WILL CONTINUE TO MONITOR.
[2019-02-22 09:15] LABS: BASOPHILS # (AUTO) 0.1 K/uL (0.0-0.2); BASOPHILS % (AUTO) 0.8 % (0.0-2.0); EOSINOPHILS # (AUTO) 0.4 K/uL (0.0-0.4); EOSINOPHILS % (AUTO) 3.8 % (0.0-4.0); HEMATOCRIT 24.8 % (36-48); HEMOGLOBIN 7.7 g/dL (12.0-16.0); LYMPHOCYTES # (AUTO) 2.4 K/uL (1.0-5.5); LYMPHOCYTES % (AUTO) 21.5 % (20.5-51.5); MEAN CORPUSCULAR HEMOGLOBIN 24 pg (27-31); MEAN CORPUSCULAR HGB CONC 31 % (32-36); MEAN CORPUSCULAR VOLUME 77 fL (79.0-98.0); MONOCYTES # (AUTO) 0.7 K/uL (0.0-1.0); MONOCYTES % (AUTO) 5.9 % (1.7-9.3); NEUTROPHILS # (AUTO) 7.6 K/uL (1.8-7.7); PLATELET COUNT (AUTO) 456 K/uL (130-430); RED BLOOD CELL COUNT(AUTO) 3.23 MIL/uL (4.2-6.2); RED CELL DISTRIBUTION WIDTH 21.3 % (9.0-15.0); WHITE BLOOD COUNT (AUTO) 11.2 K/uL (4.8-10.8)
[2019-02-22 09:20] LABS: C-REACTIVE PROTEIN QUANT 3.6 mg/dL (0-0.5); CALCIUM 7.9 mg/dL (8.4-11.0); CREATININE 0.84 mg/dL (0.55-1.30); POTASSIUM 4.1 mmol/L (3.5-5.1)
[2019-02-22 09:52] LABS: ERYTHROCYTE SEDIMENTATION RATE 80 MM/HR (0-20)
--- NOTE | 2019-02-22 11:39 | NUR ---
RN SELIN PATIENT IS AWAKE AND ALERT, ASSISTED TO BATHROOM AND BACK TO BED. PATIENT STATES SHE IS CONSTIPATED BUT WAS ABLE TO PASS BOWEL MOVEMENT, PATIENT IS REFUSING IV FLUID EDUCATED SHE NEEDS TO DRINK MORE WATER. PATIENT VERBALIZED UNDERSTANDING. PATIENT IS REFUSING TO HAVE BED IN LOWEST POSITION PATIENT EDUCATED ON SAFETY. PATIENT PROVIDED WITH BED BATH. PATIENT HAS ALL OTHER SAFETY PRECAUTIONS IN PLACE. CALL LIGHT IS WITH HER EDUCATED TO USE FOR ASSISTANCE. PATIENT HAS NO OTHER NEEDS AT THIS TIME.
[2019-02-22 12:30] VITALS: BP_SYST 116
--- NOTE | 2019-02-22 13:06 | NUR ---
PAIN MEDICATION/NAUSEA PATIENT COMPLAINS OF PAIN , MEDICATED PER ORDER. PATIENT IS ALSO COMPLAINING OF NAUSEA. PATIENT TOLERATED WELL. PATIENT HAS ALL SAFETY PRECIPITIN IN PLACE. EDUCATED BREAKFAST HOST LIGHT FOR ASSISTANCE. CALL LIGHT IS WITH PATIENT. PATIENT IS REFUSING TO HAVE BED IN LOWEST POSITION. PATIENT HAS NO OTHER NEEDS AT THIS TIME. WILL CONTINUE TO MONITOR.
--- NOTE | 2019-02-22 15:12 | NUR ---
RN ROUNDING PATIENT IS AWAKE AND ALERT SITTING UP IN BED, TALKING ON CELL PHONE. PATIENT HAS ALL SAFETY PRECAUTIONS IN PLACE. PATIENT HAS CALL LIGHT WITH HER. PATIENT IS REFUSING IV FLUID, ALSO REFUSING TO HAVE BED IN LOWEST POSITION PATIENT WAS EDUCATED. PATIENT HAS NO COMPLAINTS AT THIS TIME. PATIENT IS STABLE.
--- NOTE | 2019-02-22 15:28 | NUR ---
DC Planning: Receiving call from Flory MURGUIA at [facility], stated she did the pre operative care for the pt prior to her surgery in January. The PA has not see the pt for follow up care since then. Upon her evaluation that the pt is currently being care for daily wound care and on one PO Vibramycin. The pt can be seen as outpatient with her at [facility]. She asked to call [facility]/ Dept of Plastic surgery for Friday appointment. LAZ called tel # [phone], spoke with the coordinator to set up the appointment time. Per Smitha, given appointment at 11am at PA Office address:[address] [place] [id number]. Addendum: 02/22/19 at 6041 by Kristen Lai RN Phoned to notify dr. Lopez of the above, the md wheeler to dc pt back to snf and to f/u with [facility] as scheduled. ROSE MARIE Hunter made aware.
[2019-02-22 16:47] VITALS: BP_SYST 122
--- NOTE | 2019-02-22 16:57 | NUR ---
DC Planning: Informed pt about DCP to snf vs LTAC, explained the POC to the facilities. The pt agreed with the discharge to next LOC and to f/u with [facility] , for out patient wound care. She requested that the accepting facility can provide dilaudid IV for pain control. She gave the facility of choice, [facility] post acute, [facility]. or [facility] [place].
--- NOTE | 2019-02-22 17:31 | NUR ---
PAIN MEDICATION PATIENT MEDICATED FOR PAIN SHE IS COMPLAINS FOR PAIN. PATIENT IS AWAKE AND ALERT, NO SIGNS OF DISTRESS, BREATHING IS EQUAL AND NON LABORED. PATIENT HAS CALL LIGHT WITH PATIENT EDUCATED TO USE FOR ASSISTANCE. PATIENT, HAS NO OTHER NEEDS WILL CONTINUE TO MONITOR.
--- NOTE | 2019-02-22 18:58 | NUR ---
RN CLSOING NOTE PATIENT IS AWAKE AND ALERT LAYING IN BED NO SIGNS OF ANY DISTRESS, BREATHING IS EQUAL AND NON LABORED. PATIENT IS STILL REFUSING IV FLUIDS, AND TO HAVE BED IN LOWEST POSITION. PATIENT WAS EDUCATED. PATIENTS WOUND CARE DONE ORDERED. PATIENT HAS CALL LIGHT WITH HER EDUCATED TO USE FOR ASSISTANCE. PATIENT HAS NO OTHER COMPLAINTS AT THIS TIME. PATIENT IS STABLE.
[2019-02-22 20:00] VITALS: BP_SYST 131
[2019-02-23] VITALS: BP_SYST 128
[2019-02-23 01:07] LABS: FOLATE (FOLIC ACID) 4.5 ng/mL (>3.0)
[2019-02-23] MEDS: HYDROmorphone 2 MG/ML VIAL IVP PRN ×4 (02:01→16:26)
[2019-02-23 04:00] VITALS: BP_SYST 122
[2019-02-23 08:00] VITALS: BP_SYST 126
[2019-02-23 08:14] LABS: BASOPHILS # (AUTO) 0.1 K/uL (0.0-0.2); BASOPHILS % (AUTO) 0.7 % (0.0-2.0); EOSINOPHILS # (AUTO) 0.4 K/uL (0.0-0.4); EOSINOPHILS % (AUTO) 3.9 % (0.0-4.0); HEMATOCRIT 24.9 % (36-48); HEMOGLOBIN 7.9 g/dL (12.0-16.0); LYMPHOCYTES # (AUTO) 2.3 K/uL (1.0-5.5); LYMPHOCYTES % (AUTO) 21.4 % (20.5-51.5); MEAN CORPUSCULAR HEMOGLOBIN 24 pg (27-31); MEAN CORPUSCULAR HGB CONC 32 % (32-36); MEAN CORPUSCULAR VOLUME 76 fL (79.0-98.0); MONOCYTES # (AUTO) 0.7 K/uL (0.0-1.0); MONOCYTES % (AUTO) 6.3 % (1.7-9.3); NEUTROPHILS # (AUTO) 7.3 K/uL (1.8-7.7); NEUTROPHILS % (AUTO) 67.7 % (40.0-70.0); PLATELET COUNT (AUTO) 454 K/uL (130-430); RED BLOOD CELL COUNT(AUTO) 3.26 MIL/uL (4.2-6.2); RED CELL DISTRIBUTION WIDTH 20.8 % (9.0-15.0); WHITE BLOOD COUNT (AUTO) 10.8 K/uL (4.8-10.8)
[2019-02-23 08:23] LABS: C-REACTIVE PROTEIN QUANT 3.6 mg/dL (0-0.5); CALCIUM 7.9 mg/dL (8.4-11.0); CREATININE 0.72 mg/dL (0.55-1.30)
[2019-02-23 09:17] LABS: ERYTHROCYTE SEDIMENTATION RATE 87 MM/HR (0-20)
[2019-02-23] MEDS: D5/0.45 NS 1,000 ML IV SCH ×4 (10:00→21:25)
[2019-02-23] MEDS: DOXYCYCLINE HYCLATE 100 MG CAPSULE PO SCH (10:11)
[2019-02-23] MEDS: IRON DEXTRAN COMPLEX 100 MG in NS 100 ML IV SCH (10:11)
[2019-02-23] MEDS: DOCUSATE SODIUM 250 MG CAPSULE PO SCH ×2 (10:11→21:22)
--- NOTE | 2019-02-23 10:15 | NUR ---
DC Planning: Phoned [place] dept, Per Kaushal, all cm and water quality analyst are in meeting. She asked to call back after 12pm and there is a designated cm for today. CM's requesting the call back to the cm danyelle to discuss the dcp to [facility] today. Addendum: 02/23/19 at 1342 by Kristen Lai RN >> Faxed DCP order and update clinical information to [facility], attn: to Lenore fax# [phone]. Per Lenore, there is no assigned CM yet.
[2019-02-23] MEDS: POLYETHYLENE GLYCOL 3350, 17 GM/ POWD.PACK PO SCH (11:52)
[2019-02-23 12:50] VITALS: BP_SYST 121
--- NOTE | 2019-02-23 12:50 | NUR ---
PHYSICAL THERAPY EVALUATION WAS ATTEMPTED A SECOND TIME. FIRST ATTEMPT, PATIENT REQUESTED TO BE PREMEDICATED FOR PAIN. RN PROVIDED PAIN MEDICATION AND THE SECOND ATTEMPT WAS MADE APPROXIMATELY 45 MINUTES AFTER. PATIENT REQUESTED TO HOLD THE EVALUATION UNTIL TOMORROW BECAUSE OF SEVERE EDEMA AND PAIN IN THE LLE. RN AND WOUND CARE TREATMENT NURSE WERE INFORMED. NURSING WILL APPLY TONY BANDAGES TO ATTEMPT TO CONTROL LLE EDEMA. PLAN: ATTEMPT THE EVALUATION TOMORROW.
--- NOTE | 2019-02-23 13:43 | NUR ---
Discharge Planning: DCP faxed pt referral to [facility] (f [phone] p [phone]) Rm 102A given to LAZ
--- NOTE | 2019-02-23 15:35 | NUR ---
Wound Care Orders Updated: Late note for 02/23/19 at 1535 secondary to patient care. Spoke with Dr. Андрей Lopez. New wound care orders received: (Pre-medicate for wound care) 1. Cleanse wound with normal Saline. 2. Apply SurePrep to gabbi-wound. 3. Cover wound with Oil Emulsion dressings. 4. Cover with ABD pads. 5. Wrap with jonatan wrap. 6. Wrap from toes to knee with judd bandage (1/3 overlap). Perform wound care daily, and prn for dressing soiling or dislodgment.
--- NOTE | 2019-02-23 16:12 | NUR ---
DC Planning: Late entry: received call from Maya/Paul tel # [phone]: informed her that the pt is accepting back to [facility] sub acute rehab, to room # 102A. Maya will arrange the ambulance for shrimp picker. She will be calling nursing unit to give the ETA. RN please call [facility] to give report at # [phone], ROSE MARIE Delarosa made aware. >> CM notified dr. Lopez and requested the discharge order, discharge summary and pain meds order, (same regimen , IV dilaudid is working well per pt). CM to fax the mentioned documents to Maya once available to fax # [phone]. >> CM informed pt about [facility] does not approve other facility since she still has bed opened at [facility]. The pt made aware that Allie, at [facility] knows about her concerns: pain management with prompt iv medication as prescribed, wound care and iron placement. She is a person to talk to if there is any issues at the facility. The pt then agreed with transferring back to [facility] today.
[2019-02-23] MEDS ORDERED: DOXY100C2 PO (16:43)
[2019-02-23] MEDS ORDERED: POLY17PO4 PO (16:43)
[2019-02-23] MEDS ORDERED: HYDROMORPHONE 1 MG IVP (16:43)
[2019-02-23] MEDS ORDERED: ACET325T53 PO (16:43)
[2019-02-23 16:45] VITALS: BP_SYST 124
--- NOTE | 2019-02-23 18:37 | NUR ---
ESSENCE NESBITT CM FROM [place] [facility] CALLED AND SW WITH OLEG. PER RN OLEG, DUE TO LACKING DISCHARGE SUMMARY AND A POSITIVE P. MIRABILIS REPORT FROM THE WOUND CULTURE THAT LOWRY NOT AWARE ABOUT, THEY WILL NOT TAKE PATIENT AT THIS TIME
[2019-02-23 20:00] VITALS: BP_SYST 103
[2019-02-23] MEDS: SULFAMETHOXAZOLE/TRIMETHOPR DS 1 TABLET PO SCH (21:22)
[2019-02-24] MEDS: HYDROmorphone 2 MG/ML VIAL IVP PRN ×5 (00:38→17:31)
--- NOTE | 2019-02-24 05:00 | NUR ---
CLOSING NOTE: REPORT WAS GIVEN @ BEGINNING OF SHIFT, A/O/X/4, RESPIRATIONS EVEN AND UNLABORED ON ROOM AIR, OBESE FEMALE CO-OPPERTIVE WITH STAFF, PICC LINE PATENT AND INTACT TO TIERRA, REFUSED IVF, TOLERATING PO FLUIDS WELL, REQUESTS PAIN MEDICATION OF DILAUDID 2MG IVP Q 4 HOURS FOR PAIN IN LEFT LOWER LEG, DRSG CHANGED ON LEFT LOWER LEG AND PATIENT RESTING QUIETLY IN BED WITH EYES OPEN, PATIENT ON MENSES, VOIDING USING BEDPAIN, KEPT CLEAN AND DRY
[2019-02-24] MEDS: D5/0.45 NS 1,000 ML IV SCH ×2 (06:00→16:00)
[2019-02-24 07:45] VITALS: BP_SYST 101
[2019-02-24 08:10] LABS: BASOPHILS % (AUTO) 0.4 % (0.0-2.0); EOSINOPHILS # (AUTO) 0.4 K/uL (0.0-0.4); EOSINOPHILS % (AUTO) 3.7 % (0.0-4.0); HEMATOCRIT 24.5 % (36-48); HEMOGLOBIN 7.8 g/dL (12.0-16.0); LYMPHOCYTES # (AUTO) 2.5 K/uL (1.0-5.5); LYMPHOCYTES % (AUTO) 25.5 % (20.5-51.5); MEAN CORPUSCULAR HEMOGLOBIN 24 pg (27-31); MEAN CORPUSCULAR HGB CONC 32 % (32-36); MEAN CORPUSCULAR VOLUME 76 fL (79.0-98.0); MONOCYTES # (AUTO) 0.6 K/uL (0.0-1.0); MONOCYTES % (AUTO) 6.1 % (1.7-9.3); NEUTROPHILS # (AUTO) 6.3 K/uL (1.8-7.7); NEUTROPHILS % (AUTO) 64.3 % (40.0-70.0); PLATELET COUNT (AUTO) 439 K/uL (130-430); RED BLOOD CELL COUNT(AUTO) 3.22 MIL/uL (4.2-6.2); WHITE BLOOD COUNT (AUTO) 9.9 K/uL (4.8-10.8)
[2019-02-24 08:27] LABS: C-REACTIVE PROTEIN QUANT 3.3 mg/dL (0-0.5); CALCIUM 7.7 mg/dL (8.4-11.0); CREATININE 1.01 mg/dL (0.55-1.30); POTASSIUM 3.8 mmol/L (3.5-5.1)
[2019-02-24] MEDS: DOCUSATE SODIUM 250 MG CAPSULE PO SCH (08:43)
[2019-02-24] MEDS: SULFAMETHOXAZOLE/TRIMETHOPR DS 1 TABLET PO SCH (08:43)
[2019-02-24] MEDS: POLYETHYLENE GLYCOL 3350, 17 GM/ POWD.PACK PO SCH (08:44)
--- NOTE | 2019-02-24 08:45 | NUR ---
pt given pain med, pt given am meds. will cont to monitor.
[2019-02-24 08:49] LABS: ERYTHROCYTE SEDIMENTATION RATE 83 MM/HR (0-20)
[2019-02-24] MEDS: IRON DEXTRAN COMPLEX 100 MG in NS 100 ML IV SCH (08:49)
--- NOTE | 2019-02-24 10:01 | NUR ---
Physical Therapy evaluation was attempted twice this morning, however, the patient is in a deep sleep. Plan: attempt later.
--- NOTE | 2019-02-24 11:56 | NUR ---
DC PLANNING: SPOKE WITH PATRICK (LAZ @ [facility]) @ [phone], [phone] REGARDING DC PLANNING TO [facility]. PER PATRICK, THEY HAD HOLD THE DC LAST NIGHT DUE TO PATIENT WOUND CULTURE REPORT CAME BACK POSITIVE WITH P. MIRABILIS. THEY WERE NOT SURE IF PATIENT WILL BE GOING WITH IV ABX AND ISOLATION. LAZ EXPLAINED PATIENT HAS NOT BEEN PLACED ON ISOLATION. LAZ NGUYEN ALSO EXPLAINED THAT SINCE PATIENT HAS NOT BEEN DC'D YESTERDAY. PATIENT'S BEDHOLD HAS AND PATIENT LOST HER BED AT [facility]. PATRICK WILL CHECK WITH [facility] IF THEY CAN ACCEPT PATIENT BACK AFTER BEDHOLD . PATRICK FAXED A REFERRAL FORM FOR LAZ TO FILL OUT. LAZ FILLED OUT THE FORM AND FAXED BACK TO [facility] WITH DC SUMMARY, DC ORDER, WOUND NOTES, CULTURE REPORT. CM TO FOLLOW UP NEEDED.
[2019-02-24 12:00] VITALS: BP_SYST 108
--- NOTE | 2019-02-24 12:30 | NUR ---
pt given pain med, encouraged to eat .
--- NOTE | 2019-02-24 13:47 | NUR ---
DC PLANNING: RECEIVED A CALL FROM PATRICK (LAZ @ [facility]) @ P STATING PATIENT IS NO LONGER HAS [facility]. PATIENT HAS DROPPED [facility] 1 WEEK AGO. [facility] NO LONGER MANAGE PATIENT AT THIS TIME. LAZ CONTACTED [facility] @ P , SPOKE WITH KINA PERSON) STATING PATIENT 7 DAY BEDHOLD HAS BEEN . THEY WILL CHECK IF BED IS AVAILABLE. WILL CALL CM BACK IF BED IS AVAILABLE. CM TO FOLLOW UP NEEDED.
--- NOTE | 2019-02-24 15:52 | NUR ---
Nutrition F/U RD reviewed pt's current EMR including diet Hx, physician notes, nursing notes, pertinent labs/meds/procedures, care trends and care activity. Admitting Dx: Wound infection and tachycardia PMH: Lymphedema, Morbid Obesity, Depression, Anxiety, Sepsis per EMR. Current Diet Order: Regular diet x 0 days Subjective information: Pt was seen resting in bed at time of RD visit. Pt reported "so-so" appetite, and last BM was yesterday. Pt reported nausea today, and this has been ongoing for the past couple of days. Per EMR, pt is pending D/C. Current PO intake: 59% average x8 meals Estimated Energy Expenditure (kcals/day) 5930-7224 kcal/day (25-30 kcal/kg IBW for Morbid Obesity) Estimated Protein Required (g/day) 164-218 gm/day (1.5-2 gm/kg IBW for morbid obesity and wound healing) Estimated Fluid Required (l/day) 2.7-3.2 L/day (1ml/calorie for wound healing) Problem/Etiology/Signs/Symptoms Morbid obesity r/t poor nutrition quality of life AEB BMI 73 gk/m2 and 340% IBW. (*ongoing) Increased nutrient needs r/t metabolic demands AEB estimated calorie and protein needs for wound healing. (*ongoing) Expected Outcomes/Goals Monitor appetite and PO intake w/ goal of pt meeting at least 75% of estimated nutritional needs, labs trending WNL, normal GI function, skin integrity/wt maintenance. Dietitian Recommendations * Recommend regular diet w/ Alberto BID and Ensure Enlive BID (ONS and modulars will provide additional 880 kcal/day 45 gm protein/day) * Encourage pt to increase PO intake Follow Up High Risk: F/U in 2-3 days
--- NOTE | 2019-02-24 15:57 | NUR ---
Dietitian Recommendations * Recommend regular diet w/ Alberto BID and Ensure Enlive BID (ONS and modulars will provide additional 880 kcal/day 45 gm protein/day) * Encourage pt to increase PO intake LP, RD Please refer to Nutrition F/U for details.
[2019-02-24 16:45] VITALS: BP_SYST 112
--- NOTE | 2019-02-24 17:04 | NUR ---
DC PLANNING: RECEIVE A CALL FROM BRETT (CLINICAL LIAISON AT [facility]) @ P . PATIENT IS ACCEPTED BACK AND ROOM NUMBER IS 102B. TRANSPORTATION HAS BEEN SETUP WITH [facility] @ FOR TRENA PIERRE OVER 500LBS. SPOKE WITH ACOSTA (DISPATCH) CONFIRMED HAS TRENA PIERRE. TACKING MACHINE OPERATOR TIME IS AT 8PM. Addendum: 02/24/19 at 1717 by Meghan Cervantes RN [facility]SP[facility] HAS BEEN CANCELLED.
[2019-02-24 19:06] VITALS: BP_SYST 112
[2019-02-24 20:00] VITALS: BP_SYST 110
--- NOTE | 2019-02-24 20:00 | NUR ---
Pt is resting quietly in bed. No acute distress noted and no c/o pain or discomfort. PICC is intact in TIERRA and saline locked. Left leg dressing is dry and intact. Fall and safety precautions are in place.
--- NOTE | 2019-02-24 20:20 | NUR ---
Pt was transferred to [facility] via Ambulance with all her belongings in stable condition. Prior to transfer, classroom monitor was removed and given to cardiac monitor. Wrist ID band was removed and placed in the shredder. Plain ID band with pt's name and was applied to pt's wrist. TIERRA PICC was left in place. Transition of Care/Discharge Instructions were explained and given to pt who verbalized understanding.
[2019-02-25] MEDS ORDERED: HYDR1SYR7 IVP (05:30)
[2019-02-25] MEDS ORDERED: HYDR1VIA2 IVP (17:51)
[2019-02-25] MEDS ORDERED: HYDR2SYR IV (19:47)
== END 2019-02-24 20:20 | DRG 602 ==
LOC: SED 14:51 → STU 19:45
PROVIDERS: ADMIT Preventive Medicine Preventive Medicine/Occupational Environmental Medicine; ATTEND Preventive Medicine Preventive Medicine/Occupational Environmental Medicine
DX: L03.116 Cellulitis of left lower limb (principal); E43 Unspecified severe protein-calorie malnutrition; E87.1 Hypo-osmolality and hyponatremia; Z68.45 Body mass index [BMI] 70 or greater, adult; E66.01 Morbid (severe) obesity due to excess calories; E88.09 Other disorders of plasma-protein metabolism, not elsewhere classified; F32.9 Major depressive disorder, single episode, unspecified; D50.9 Iron deficiency anemia, unspecified; E83.51 Hypocalcemia; I87.2 Venous insufficiency (chronic) (peripheral); F41.9 Anxiety disorder, unspecified; K59.00 Constipation, unspecified; D47.3 Essential (hemorrhagic) thrombocythemia; R73.9 Hyperglycemia, unspecified; Z88.1 Allergy status to other antibiotic agents; Z79.899 Other long term (current) drug therapy; Z88.0 Allergy status to penicillin; Z88.8 Allergy status to other drugs, medicaments and biological substances
CPT/HCPCS: 36415; 73030; 80048; 80053; 82607; 82728; 82746; 83540-TC; 83550-TC; 83605; 83735-TC; 83880; 84100-TC; 84484; 85025; 85044-TC; 85610-TC; 85651-TC; 86140; 87040-TC; 87070-TC; 87081; 87186-TC; 93306; 96365; 96375; 99285; G0378; J1170; J1200; J1750; J1956; J2270; J2405; J3370; J3490; J7060

== ENCOUNTER 2019-02-25 | Inpatient (IN) | payer OTHER ==
[~2019-02-25] VITALS: Ht 177.8 cm; Wt 246.4 kg
[~2019-02-25] MED LIST: ACET325T53 PO; DOCU250C71 PO; DOXY100C2 PO; GABA300S PO; HYDR1SYR7 IJ; HYDROMORPHONE 1 MG IVP; POLY17PO4 PO
[2019-02-25 00:05] VITALS: BP_SYST 148
--- NOTE | 2019-02-25 00:20 | NUR ---
Patient to HOSPITAL BED to gown for evaluation. Side rails up. Report given to KARIME TROTTER.
--- NOTE | 2019-02-25 00:25 | NUR ---
Pawel puentes in EDM - 02/25/19 at 0025 by SDEDCJM Patient to bed 07 to kurt for evaluation. Side rails up. Report received from ROSE MARIE Graham
--- NOTE | 2019-02-25 00:26 | NUR ---
Patient brought in BLS complaining of left leg pain 01/14. Patient was admitted to [facility] for left leg cellulitis on 02/17/[address] Lopez and discharged to [facility] today. Patient AMA'd from facility after patient requesting IV Diluadid. Called 911 and requested to be transferred to Levels per EMS. Patient placed in bariatric bed due to weight. No other complaints/injuries per patient or as noted. Will continue to monitor.
[2019-02-25] MEDS ORDERED: HYDROmorphone 1 MG INJ. 1 MG/ML AMPUL IVP ONE (00:30)
--- NOTE | 2019-02-25 00:34 | NUR ---
Patient arrives with PICC LINE to right arm. ok to give medication through PICC LINE.
--- NOTE | 2019-02-25 00:35 | NUR ---
Dr. Quiñonez made aware of patient's pain. Ordered Diulaudid for patient informed not available in ED. Will change order to another Pain medication
[2019-02-25] MEDS ORDERED: fentaNYL CITRATE/PF 100 MCG/2 ML AMP IVP ONE (00:45)
--- NOTE | 2019-02-25 00:52 | NUR ---
Pt refused medication. Pt states, "fentanyl doesn't work for me. Only dilaudid works." Pt requesting morphine. notified.
--- NOTE | 2019-02-25 00:55 | NUR ---
Pt asleep resting comfortably. Pt woken up to give pain medication.
--- NOTE | 2019-02-25 00:58 | NUR ---
Medication reconciliation completed with information provided by Patient. Any prior medication reconciliation on file was reviewed and corrected.
--- NOTE | 2019-02-25 00:59 | NUR ---
Dr. Quiñonez at bedside discussing plan of care.
[2019-02-25] MEDS ORDERED: MORPHINE 2 MG/ML INJ. SYRINGE IVP ONE (01:00)
--- NOTE | 2019-02-25 01:00 | NUR ---
Patient states she is a full code
--- NOTE | 2019-02-25 01:06 | NUR ---
Dr. Quiñonez speaking to Dr. Molina regarding admission.
--- NOTE | 2019-02-25 01:09 | NUR ---
Dr. Quiñonez now speaking to Dr. Romel Lopez regarding possible admission
--- NOTE | 2019-02-25 01:41 | NUR ---
Patient will be admitted to care of Dr. Lopez . Admitted to Med Surg unit. Will go to room 125 A. Belongings list completed. Complete and up to date summary report printed. Report to be given at bedside with opportunity for questions.
--- NOTE | 2019-02-25 01:49 | NUR ---
ADMISSION: The patient, LATRICE COREAS, 33 y/o, F admitted by JENNIFER JACOBO MD, with the diagnosis of cellulitis and intractable pain to room 125A , was given written information regarding hospital policies, unit procedures and contact persons.
--- NOTE | 2019-02-25 02:00 | NUR ---
ADMISSION PHYSICAL ASSESSMENT NOTES; took over care from admission from nurse Joshi. pt. transferred to special bed , able to move herself and repositioned. pt. weighed over 500 lbs. readmitted less than 24 hrs for cellulitis of left leg and intractable pain. pt. awake, alert and oriented. call light within reach. left leg dressing intact, was just discharge here last night, pictures and dressing was done, refused to take picture on admission, will endorse to day shift when dressing will be changed today.able to move extremities. IV PICC line on rt. upper arm. fall risk precautions. bed rails up, bed alarm on. pt. was medicated with Morphine before arrival from ER. pt. get incontinent, pad changed.
[2019-02-25 02:17] VITALS: BP_SYST 117
--- NOTE | 2019-02-25 03:00 | NUR ---
NOTES: pt. nauseated and had small emesis and gets incontinent of urine. changed white pad and gown and top sheet. repositioned self, on her side.
--- NOTE | 2019-02-25 04:30 | NUR ---
NOTES: pt. sleeping soundly. condition observed and monitored.
--- NOTE | 2019-02-25 05:17 | NUR ---
paged paged for Dr Galina Lopez, dialed . s/w Shayy.
[2019-02-25] MEDS ORDERED: HYDR1SYR7 IVP (05:30)
--- NOTE | 2019-02-25 05:35 | NUR ---
NOTES; called Dr. Lopez to verify orders, medications not reconcile yet, pt. wants something IV Dilaudid for pain. ok to continue medications she has been getting before discharge.
--- NOTE | 2019-02-25 05:37 | NUR ---
paged paged for Dr Galina Lopez, dialed . s/w Shayy.
[2019-02-25] MEDS ORDERED: ACETAMINOPHEN 325 MG TABLET PO PRN ×2 (05:45→11:45)
--- NOTE | 2019-02-25 05:50 | NUR ---
NOTES: pt. sleeping, tried to wake up ,informed that pain medication needs to verified by pharmacy.
[2019-02-25] MEDS ORDERED: HYDROmorphone 2 MG/ML VIAL IVP PRN (06:00)
[2019-02-25] MEDS ORDERED: HYDROmorphone 1 MG INJ. 1 MG/ML AMPUL IV PRN (06:00)
--- NOTE | 2019-02-25 06:48 | NUR ---
CLOSING NOTES; informed pt. still waiting for pharmacy to verify painn medication, wiil administer as soon as verified. PICC line on rt. upper arm. for further care and assistance. call within reach.
--- NOTE | 2019-02-25 07:00 | NUR ---
pt. medicated with IV Dilaudid for c/o left leg pain 10/, purple port not working, unable to flush ,on;y the red port. endorsed to day shift nurse Elsa to reassess pain
--- NOTE | 2019-02-25 07:30 | NUR ---
RN OPENING NOTE REPORT WAS ENDORSED BY NIGHT NURSE. PATIENT IS AWAKE AND ALERT SITTING UP IN BED, NO SIGNS OF ANY DISTRESS, BREATHING IS EQUAL AND NON LABORED. PATIENT IS CURRENTLY TALKING ON CELL PHONE. PATIENT EDUCATED PRINTED CIRCUIT BOARDS PINNER LIGHT FOR ASSISTANCE. CALL LIGHT IS WITH PATIENT, PATIENT IS REFUSING TO HAVE BED DOWN IN LOWEST POSITION FOR SAFETY. PATIENT HAS NO COMPLAINTS AT THIS TIME. WILL CONTINUE TO MONITOR.
[2019-02-25 08:23] VITALS: BP_SYST 133
[2019-02-25] MEDS ORDERED: DOCUSATE SODIUM 250 MG CAPSULE PO SCH (09:00)
[2019-02-25] MEDS: HYDROmorphone 2 MG TAB PO SCH ×2 (11:32→18:00)
--- NOTE | 2019-02-25 11:33 | NUR ---
SCHEDULED PAIN MEDICATION PATIENTS SCHEDULED PAIN MEDICATION GIVEN ORDERED. PATIENT STATES THAT THE PO DILAUDID DOES NT TOUCH THE PAIN. EDUCATED THE PATIENT TO TRY THE SCHEDULED IF IT DOESN'T WORK THEN WE WILL GIVE SOMETHING FOR BREAKTHROUGH PAIN. PATIENT HAS FAMILY AT BED SIDE. PATIENT EDUCATED MORTGAGE CONSULTANT LIGHT FOR ASSISTANCE. CALL LIGHT IS WITH PATIENT. PATIENT HAS NO OTHER NEEDS AT THIS TIME. WILL CONTINUE TO MONITOR.
[2019-02-25] MEDS ORDERED: LORazepam 2 MG/ML VIAL IVP PRN (11:45)
[2019-02-25] MEDS ORDERED: ONDANSETRON HCL 4 MG/2 ML VIAL IVP PRN (11:45)
[2019-02-25] MEDS: HYDROmorphone 2 MG/ML VIAL IVP PRN ×2 (13:10→18:20)
[2019-02-25 13:15] VITALS: BP_SYST 136
--- NOTE | 2019-02-25 13:17 | NUR ---
patient medicated for breakthrough pain . patient states pain is now at a 10/10 patient vital signs are stable bp is 132/78 spo2 99% on room air, respiration 18. patient educated coding consultant light for assistance, call light is with patient. patient breathing is equal and non labored. patient has no other needs at this time. will continue to monitor.
[2019-02-25] MEDS ORDERED: NORMAL SALINE 5 ML DISP.SYRIN IVF SCH (14:00)
--- NOTE | 2019-02-25 14:45 | NUR ---
wound care patients wound care done with wound care nurse. pictures were obtained. patient has no complaints at this time. patient has all safety precautions in place. call light is with patient. patient educated to use call light for assistance. no other needs at this time.
--- NOTE | 2019-02-25 14:45 | NUR ---
WOUND EVALUATION: Late note for 02/25/19 at 1445 secondary to patient care. Wound Consult received from Dr. Romel Lopez. Thank you, Dr. Lopez, for the consult. Patient received in a Sujey Bed with a low air-loss therapy initiated, awake, alert and oriented. Patient is able to turn in bed independently. Galindo Score is an 18. 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 Patient re-admitted early this morning (left AMA from facility) post discharge last night. No labs or microbiology available. Intrinsic factors that delay wound healing: Lymphedema, Hypoalbuminemia. Extrinsic factors that delay wound healing: Decreased mobility. Wound Assessment: 1. 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 Wound bed has 85% pink tissue, 15% yellow tissue. No odor, no drainage. Bijal-wound intact. New skin growth on most of anterior/lateral aspect of extremity, also new skin growth medially. Wound measures 33.5 cm by approximately 35.0 cm (wound area no longer covers entire circumference of calf). Four clarke removed from skin on lateral, medial, and posterior lower extremity inferior to knee/superior to surgical wound. Recommend: Pre-medicate for wound care. Cleanse wound with normal saline. Apply SurePrep to bijal-wound. Apply Hydrogel to wound. Cover with non-adhesive foam dressings. Cover with ABD pads. Wrap with jonatan wrap. Wrap from toes to knee with judd bandage (1/2 overlap). Perform wound care daily, and as needed for dressing soiling or dislodgement. Also recommend: Encourage and assist patient as needed with repositioning every 2 hours with pillow support and off-load pressure areas with pillows for pressure re-distribution. Offload, elevate and float bilateral heels with pillows. Perform skin care and monitor skin integrity Q shift. Use moisture barrier cream on buttocks and other moisture susceptible areas QID and as needed for soiling. Maintain patient on a low air-loss mattress. Will order a bariatric bed. Addendum: 02/25/19 at 1836 by Leonardo Acevedo RN Addendum: Wound site has about 60% open tissue, 40% skin.
--- NOTE | 2019-02-25 16:00 | NUR ---
DC Planning: Together with Allie, Liaison from [facility] and LAZ Christianson and myself met with pt at bedside to hear her complaints that causes her to leave AMA from [facility]. The pt was discharged from [facility] to [facility] last night but once she was at the facility for less than one hour, the pt called 911 and came to [facility]. The patient was not happy with several issues, 1 the change of pain control regiment, 2 nursing care did not meet her expectation ie not answering call light timely. Allie reassured the pt that she will solve the said issues including changing the attending MD. Dr. Lopez will be following the pt at [facility].Allie and the pt made aware of how important to go to [facility] for the out patient appointment with dr. Ruth tomorrow. Allie will assist with the arrangement to [facility]. Allie will be at the [facility] tonight as well, to complete the admission and arrange plan of care with her nursing staff. >> ROSE MARIE Hunter made aware of the plan and to call dr. Lopez for discharge order, IV dilaudid order and to complete the discharge package. >> The transportation will be arranged by Arron , community midwife. Addendum: 02/25/19 at 1745 by Kristen Lai RN Per Areli, arranged the S ambulance transfer with [facility], pick up man time at 21:00.
--- NOTE | 2019-02-25 17:13 | NUR ---
DC Planning:Out patient appointment with Flory MURGUIA at [facility], Dept of Plastic surgery for Friday at 11am , at [place] Office address: [address] [place] [address]. [address], tel # [phone]. Addendum: 02/25/19 at 1723 by Kristen Lai RN >> The Patient greed to go back to [facility] to room # 407A, tel # [phone], address: [address] [place] [address],
[2019-02-25 17:20] VITALS: BP_SYST 139
--- NOTE | 2019-02-25 17:27 | NUR ---
ICICLE MACHINE OPERATOR, [place], ASKED ME TO ARRANGE TRANSPO AFTER AGREEING TO GO BACK TO [facility]. CALLED [facility] AND REQUESTED FOR A BARIATRIC BED. SPOKE TO WILL. HOUSE DETECTIVE TIME IS 2100 GOING TO RM 42 A.
[2019-02-25] MEDS ORDERED: HYDR1VIA2 IVP (17:51)
--- NOTE | 2019-02-25 18:24 | NUR ---
rn closing note/ pain medication patient is awake and alert, no signs of any distress, breathing is equal and non labored. patient complains of pain but is refusing po pain medication. iv breakthrough pain given. patient educated to use call light for assistance, call light is with patient. patient has all safety precautions in place. patient has no other complaints at this time. patient is aware of transfer back to [facility], at 2100. patient has no other needs at this time.
[2019-02-25] MEDS ORDERED: HYDR2SYR IV (19:47)
[2019-02-25 20:32] VITALS: BP_SYST 117
[2019-02-25] MEDS ORDERED: SULFAMETHOXAZOLE/TRIMETHOPR DS 1 TABLET PO SCH (21:00)
--- NOTE | 2019-02-25 21:56 | NUR ---
D/C Patient Patient given medication reconciliation form and D/C instructions. Exit Care provided. Patient verbalized understanding. MD discussed with patient the results and treatment provided. Patient in stable condition, ID band removed. Patient to be discharged with TIERRA PICC line. Patient educated on pain management. All belongings sent with patient. Report was given to Jessica at [facility]. Spoke to Dr. Lopez if patient is able to get Dilaudid one hour early. stated it is okay.
[2019-02-26] MEDS ORDERED: POLYETHYLENE GLYCOL 3350, 17 GM/ POWD.PACK PO SCH (09:00)
== END 2019-02-25 22:00 | DRG 603 ==
LOC: SED → SMU 01:13
PROVIDERS: ADMIT Preventive Medicine Preventive Medicine/Occupational Environmental Medicine; ATTEND Preventive Medicine Preventive Medicine/Occupational Environmental Medicine
DX: L03.116 Cellulitis of left lower limb (principal); Z68.45 Body mass index [BMI] 70 or greater, adult; D64.9 Anemia, unspecified; E66.9 Obesity, unspecified; F32.9 Major depressive disorder, single episode, unspecified; F41.9 Anxiety disorder, unspecified; I89.0 Lymphedema, not elsewhere classified; Z88.6 Allergy status to analgesic agent; Z88.1 Allergy status to other antibiotic agents; Z88.0 Allergy status to penicillin; Z88.8 Allergy status to other drugs, medicaments and biological substances; Z79.899 Other long term (current) drug therapy
CPT/HCPCS: 87081; 96374; 96375; 99285; J1170; J2270; J3010

== ENCOUNTER 2019-03-27 20:30 | Emergency (ER) | payer OTHER ==
[~2019-03-27] VITALS: Ht 177.8 cm; Wt 231.3 kg
[~2019-03-27 20:30] MED LIST changes: +HYDR1SYR7 IVP; +HYDR1VIA2 IVP; +HYDR2SYR IV
[2019-03-27 20:35] VITALS: BP_SYST 153
--- NOTE | 2019-03-27 20:35 | NUR ---
Patient to ER bed 6 to gown for evaluation. Side rails up.
--- NOTE | 2019-03-27 20:38 | NUR ---
ER at bedside examining patient.
--- NOTE | 2019-03-27 20:38 | NUR ---
Pt brought in by s ambulance. Pt awake, alert, oriented x4. Pt states that she has Left leg pain /. Pt states that she has had surgery in january and it still recouperating. Pt states that she has dilauded pain pump installed at noon today and it has not been working at all. Pt states that [facility] D/C'ed the pump and kept it at the facility. Pt states she has had no pain relief all day. She requested IVP Dilauded 2mg
[2019-03-27] MEDS ORDERED: HYDROmorphone 2 MG/ML VIAL IM ONE (22:15)
--- NOTE | 2019-03-27 22:15 | NUR ---
Pt given Pillow upon request
[2019-03-27] MEDS ORDERED: HYDROmorphone 2 MG/ML VIAL IVP ONE (22:30)
--- NOTE | 2019-03-27 22:38 | NUR ---
Pt Sleeping in ED bed. No acute distress noted at this time.
[2019-03-27] MEDS ORDERED: HYDROmorphone 2 MG/ML VIAL ONE (23:54)
[2019-03-27 23:56] VITALS: BP_SYST 150
--- NOTE | 2019-03-27 23:56 | NUR ---
Patient given written and verbal discharge instructions and verbalizes understanding. ER MD discussed with patient the results and treatment provided. Patient in stable condition. ID arm band removed. PICC line flushed and intact. No RX given. Patient educated on pain management and to follow up with PMD. Pain Scale 5/10. Opportunity for questions provided and answered.
== END 2019-03-27 23:56 | disposition home or self-care (01) ==
LOC: SED 20:30
DX: G89.29 Other chronic pain (principal); M79.605 Pain in left leg; L03.90 Cellulitis, unspecified; F41.9 Anxiety disorder, unspecified; A41.9 Sepsis, unspecified organism; Z87.01 Personal history of pneumonia (recurrent); Z88.0 Allergy status to penicillin; Z88.1 Allergy status to other antibiotic agents; Z88.6 Allergy status to analgesic agent; Z79.899 Other long term (current) drug therapy
CPT/HCPCS: 96374; 99283; J1170

== ENCOUNTER 2019-12-28 01:00 | Emergency (ER) | payer OTHER, SELFPAY ==
[~2019-12-28] VITALS: Ht 180.3 cm; Wt 235.4 kg
[2019-12-28 01:00] VITALS: BP_SYST 115
[~2019-12-28 01:00] MED LIST changes: +ACET325T PO; +ANT30 PO; +BUME2TAB8 PO; -DOXY100C2 PO; +FERR-69 PO; -GABA300S PO; -HYDR1SYR7 IJ; -HYDR1SYR7 IVP; -HYDR1VIA2 IVP; +HYDR2SYR IJ; -HYDROMORPHONE 1 MG IVP; +MYL80 PO; +OSCD500 PO; +POTA10TA15 PO; +SULF1TAB48 PO; +VANC1FRO2 IV
--- NOTE | 2019-12-28 01:00 | NUR ---
Patient to ER bed 02 to gown for evaluation. Side rails up. Report given to ROSE MARIE Menon
--- NOTE | 2019-12-28 01:15 | NUR ---
PT PRESENTS [facility]IA [facility] FOR R LEG PAIN 01/14. WAS UNABLE TO GET AHOLD OF HER MD TO GET PAIN MEDS AT HER SNF. PT HAS A HX OF CELLULITIS AND HAS A PICC ON HER RIGHT ARM. PT HAS SWELLING TO BILATERAL LOWER EXTREMETIES. Mahendra LUX STABLE Addendum: 12/28/19 at 0231 by [email or web address] PT PRESENTS VIA [facility] FOR L LOWER LEG PAIN 01/14. WAS UNABLE TO GET AHOLD OF HER MD TO GET PAIN MEDS AT HER SNF. PT HAS A HX OF CELLULITIS AND HAS A PICC ON HER RIGHT ARM. PT HAS SWELLING TO BILATERAL LOWER EXTREMETIES. Kelly LUX/Sergei NICHOLAS
--- NOTE | 2019-12-28 01:25 | NUR ---
DR. FORBES AT THE BEDSIDE EVALUATING PT
--- NOTE | 2019-12-28 02:15 | NUR ---
PT MEDICATED FOR PAIN, PT TOLERATED WELL
[2019-12-28] MEDS ORDERED: HYDROmorphone 2 MG/ML VIAL ONE (02:20)
[2019-12-28] MEDS: DIPHENHYDRAMINE INJ 50 MG/ML VIAL IVP ONE (02:29)
[2019-12-28] MEDS: HYDROmorphone 2 MG/ML VIAL IVP ONE (02:30)
[2019-12-28 02:49] LABS: BASOPHILS # (AUTO) 0.1 K/uL (0.0-0.2); BASOPHILS % (AUTO) 0.9 % (0.0-2.0); EOSINOPHILS # (AUTO) 0.4 K/uL (0.0-0.4); EOSINOPHILS % (AUTO) 3.4 % (0.0-4.0); HEMATOCRIT 33.1 % (36-48); HEMOGLOBIN 10.6 g/dL (12.0-16.0); LYMPHOCYTES # (AUTO) 2.3 K/uL (1.0-5.5); LYMPHOCYTES % (AUTO) 20.8 % (20.5-51.5); MEAN CORPUSCULAR HEMOGLOBIN 27 pg (27-31); MEAN CORPUSCULAR HGB CONC 32 % (32-36); MEAN CORPUSCULAR VOLUME 83 fL (79.0-98.0); MONOCYTES # (AUTO) 0.6 K/uL (0.0-1.0); MONOCYTES % (AUTO) 5.6 % (1.7-9.3); NEUTROPHILS # (AUTO) 7.5 K/uL (1.8-7.7); NEUTROPHILS % (AUTO) 69.3 % (40.0-70.0); PLATELET COUNT (AUTO) 336 K/uL (130-430); RED BLOOD CELL COUNT(AUTO) 3.99 MIL/uL (4.2-6.2); RED CELL DISTRIBUTION WIDTH 18.2 % (9.0-15.0); WHITE BLOOD COUNT (AUTO) 10.9 K/uL (4.8-10.8)
[2019-12-28 03:04] LABS: CALCIUM 8.4 mg/dL (8.4-11.0); CREATININE 0.87 mg/dL (0.55-1.30); POTASSIUM 3.3 mmol/L (3.5-5.1)
[2019-12-28 03:14] LABS: ALBUMIN 2.7 g/dL (3.4-4.8); TOTAL BILIRUBIN 0.5 mg/dL (0.0-1.0)
--- NOTE | 2019-12-28 03:22 | NUR ---
received report from ROSE MARIE Hi for continuation of care.
[2019-12-28] MEDS: POTASSIUM CHLORIDE 20 MEQ TAB.PRT.SR PO ONE (03:32)
--- NOTE | 2019-12-28 03:32 | NUR ---
pt medicated per md order. pt tolerated well.
--- NOTE | 2019-12-28 03:36 | NUR ---
Medication reconciliation completed with information provided by patient. Any prior medication reconciliation on file was reviewed and corrected.
--- NOTE | 2019-12-28 04:01 | NUR ---
PT REFUSED TO GIVE URINE AT THIS TIME.
--- NOTE | 2019-12-28 04:15 | NUR ---
DR. FORBES SPEAKING WITH DR. JACOBO TO DISCUSS PT CARE.
--- NOTE | 2019-12-28 04:45 | NUR ---
[facility] arrived for transport of patient.
--- NOTE | 2019-12-28 04:54 | NUR ---
called and gave report to ROSE MARIE Sue at [facility] prior to transport of patient to facility.
[2019-12-28] MEDS: fentaNYL CITRATE/PF 100 MCG/2 ML AMP IVP ONE (05:07)
--- NOTE | 2019-12-28 05:17 | NUR ---
pt medicated per md orders through PICC line on right upper arm. flushed with 10cc normal salin.no signs of infiltration.
[2019-12-28] MEDS: MORPHINE 4 MG/ML INJ. SYRINGE IVP ONE (05:21)
--- NOTE | 2019-12-28 05:21 | NUR ---
Patient given written and verbal discharge instructions and verbalizes understanding. ER MD discussed with patient the results and treatment provided. Patient in stable condition. ID arm band removed. No Rx given. Patient educated on pain management and to follow up with PMD. Pain Scale 5/10. Opportunity for questions provided and answered. Medication side effect fact sheet provided.
[2019-12-28 05:22] VITALS: BP_SYST 124
== END 2019-12-28 05:22 | disposition home or self-care (01) ==
LOC: SED 01:00
DX: D64.9 Anemia, unspecified (principal); E66.01 Morbid (severe) obesity due to excess calories; M79.605 Pain in left leg; F41.9 Anxiety disorder, unspecified; Z79.899 Other long term (current) drug therapy; Z88.6 Allergy status to analgesic agent
CPT/HCPCS: 36415; 80053; 83605; 85025; 87040; 96374; 96375; 99285; J1170; J1200; J2270; J3010

== ENCOUNTER 2020-01-08 21:03 | Inpatient (IN) | payer OTHER, SELFPAY ==
[~2020-01-08] VITALS: Ht 177.8 cm; Wt 262.2 kg
[2020-01-08 21:05] VITALS: BP_SYST 115
[2020-01-08 23:08] LABS: ANION GAP 6 (5-15); CALCIUM 8.2 mg/dL (8.4-11.0); CHLORIDE 101 mmol/L (98-107); CREATININE 1.02 mg/dL (0.55-1.30); GLUCOSE 109 mg/dL (70-99); POTASSIUM 3.3 mmol/L (3.5-5.1); SODIUM SERUM 140 mmol/L (136-145); UREA NITROGEN, BLOOD 13 mg/dL (8-21)
[2020-01-08 23:16] LABS: ALANINE AMINOTRANSFERASE 22 U/L (12-78); ALBUMIN 2.8 g/dL (3.4-4.8); ASPARTATE AMINOTRANSFERASE 16 U/L (10-37); TOTAL BILIRUBIN 0.5 mg/dL (0.0-1.0)
[2020-01-08 23:18] LABS: GFR AFRICAN AMERICAN 79 mL/min (>90)
[2020-01-08 23:19] LABS: C-REACTIVE PROTEIN QUANT 4.2 mg/dL (0-0.5)
[2020-01-08 23:29] LABS: BASOPHILS % (AUTO) 0.4 % (0.0-2.0); EOSINOPHILS # (AUTO) 0.5 K/uL (0.0-0.4); EOSINOPHILS % (AUTO) 4.5 % (0.0-4.0); HEMOGLOBIN 10.5 g/dL (12.0-16.0); LYMPHOCYTES # (AUTO) 2.3 K/uL (1.0-5.5); LYMPHOCYTES % (AUTO) 21.3 % (20.5-51.5); MEAN CORPUSCULAR HEMOGLOBIN 27 pg (27-31); MEAN CORPUSCULAR HGB CONC 32 % (32-36); MEAN CORPUSCULAR VOLUME 83 fL (79.0-98.0); MONOCYTES # (AUTO) 0.8 K/uL (0.0-1.0); MONOCYTES % (AUTO) 7.4 % (1.7-9.3); NEUTROPHILS # (AUTO) 7.1 K/uL (1.8-7.7); NEUTROPHILS % (AUTO) 66.4 % (40.0-70.0); PLATELET COUNT (AUTO) 329 K/uL (130-430); RED BLOOD CELL COUNT(AUTO) 3.96 MIL/uL (4.2-6.2); RED CELL DISTRIBUTION WIDTH 17.8 % (9.0-15.0); WHITE BLOOD COUNT (AUTO) 10.7 K/uL (4.8-10.8)
[2020-01-09] MEDS ORDERED: LEVOFLOXACIN 500 MG/D5W 100 ML IV ONE
[2020-01-09] MEDS ORDERED: MORPHINE 4 MG/ML INJ. SYRINGE IVP ONE (00:15)
[2020-01-09] MEDS ORDERED: ONDANSETRON HCL 4 MG/2 ML VIAL IVP ONE (00:15)
[2020-01-09 01:28] VITALS: BP_SYST 135
[2020-01-09] MEDS ORDERED: FLU VACC QS2020-21 (6 mos & up) 0.5 ML/SYRINGE I.M. PRN (01:45)
[2020-01-09] MEDS: HYDROmorphone 2 MG/ML VIAL IVP PRN ×5 (04:40→21:21)
[2020-01-09 08:00] VITALS: BP_SYST 138
[2020-01-09] MEDS ORDERED: MAG-AL HYDROX/SIMETH 30 ML UDC PO PRN (11:15)
[2020-01-09] MEDS ORDERED: POTASSIUM CHLORIDE 20 MEQ TAB.PRT.SR PO ONE (11:15)
[2020-01-09] MEDS ORDERED: DOCUSATE SODIUM 250 MG CAPSULE PO PRN (11:15)
[2020-01-09] MEDS ORDERED: LORazepam 2 MG/ML VIAL IVP PRN (11:15)
[2020-01-09] MEDS ORDERED: SIMETHICONE 80 MG TAB.CHEW PO PRN (11:15)
[2020-01-09] MEDS ORDERED: ACETAMINOPHEN 325 MG TABLET PO PRN ×2 (11:15)
[2020-01-09] MEDS ORDERED: BUMEX 1 MG/4 ML VIAL IVP ONE (11:30)
[2020-01-09] MEDS ORDERED: POLYETHYLENE GLYCOL 3350, 17 GM/ POWD.PACK PO ONE (11:30)
[2020-01-09] MEDS ORDERED: CALCIUM CARBONATE/VITAMIN D3 1 TAB TABLET PO ONE (11:30)
[2020-01-09] MEDS ORDERED: FERROUS SULFATE 325 MG TABLET.DR PO ONE (11:30)
[2020-01-09 12:00] VITALS: BP_SYST 127
[2020-01-09] MEDS: NORMAL SALINE 5 ML DISP.SYRIN IVF SCH ×4 (13:17→20:55)
[2020-01-09 17:20] VITALS: BP_SYST 121
[2020-01-09] MEDS: FERROUS SULFATE 325 MG TABLET.DR PO SCH (20:47)
[2020-01-09] MEDS: CALCIUM CARBONATE/VITAMIN D3 1 TAB TABLET PO SCH (20:47)
[2020-01-09] MEDS: BUMEX 1 MG/4 ML VIAL IVP SCH (20:54)
[2020-01-09] MEDS: LEVOFLOXACIN 500 MG/D5W 100 ML IV SCH (23:22)
[2020-01-10] VITALS: BP_SYST 115
[2020-01-10] MEDS: HYDROmorphone 2 MG/ML VIAL IVP PRN ×6 (01:19→22:08)
[2020-01-10] MEDS: NORMAL SALINE 5 ML DISP.SYRIN IVF SCH ×6 (05:39→20:57)
[2020-01-10 07:52] LABS: BASOPHILS % (AUTO) 0.5 % (0.0-2.0); EOSINOPHILS # (AUTO) 0.4 K/uL (0.0-0.4); HEMATOCRIT 32.5 % (36-48); HEMOGLOBIN 10.3 g/dL (12.0-16.0); LYMPHOCYTES # (AUTO) 2.3 K/uL (1.0-5.5); LYMPHOCYTES % (AUTO) 24.7 % (20.5-51.5); MEAN CORPUSCULAR HEMOGLOBIN 26 pg (27-31); MEAN CORPUSCULAR HGB CONC 32 % (32-36); MEAN CORPUSCULAR VOLUME 83 fL (79.0-98.0); MONOCYTES # (AUTO) 0.6 K/uL (0.0-1.0); MONOCYTES % (AUTO) 6.2 % (1.7-9.3); NEUTROPHILS # (AUTO) 5.9 K/uL (1.8-7.7); NEUTROPHILS % (AUTO) 64.6 % (40.0-70.0); PLATELET COUNT (AUTO) 311 K/uL (130-430); RED BLOOD CELL COUNT(AUTO) 3.92 MIL/uL (4.2-6.2); RED CELL DISTRIBUTION WIDTH 17.7 % (9.0-15.0); WHITE BLOOD COUNT (AUTO) 9.2 K/uL (4.8-10.8)
[2020-01-10 08:00] VITALS: BP_SYST 114
[2020-01-10 08:02] LABS: ALBUMIN 2.6 g/dL (3.4-4.8); C-REACTIVE PROTEIN QUANT 4.9 mg/dL (0-0.5); CALCIUM 8.3 mg/dL (8.4-11.0); CREATININE 1.27 mg/dL (0.55-1.30); PHOSPHORUS 4.2 mg/dL (2.7-4.5); POTASSIUM 3.5 mmol/L (3.5-5.1); TOTAL BILIRUBIN 0.5 mg/dL (0.0-1.0)
[2020-01-10] MEDS: POLYETHYLENE GLYCOL 3350, 17 GM/ POWD.PACK PO SCH (09:00)
[2020-01-10] MEDS: ONDANSETRON HCL 4 MG/2 ML VIAL IVP PRN (09:35)
[2020-01-10] MEDS: CALCIUM CARBONATE/VITAMIN D3 1 TAB TABLET PO SCH ×2 (09:35→20:56)
[2020-01-10] MEDS: FERROUS SULFATE 325 MG TABLET.DR PO SCH ×2 (09:35→20:56)
[2020-01-10] MEDS: POTASSIUM CHLORIDE 10 MEQ TAB.PRT.SR PO SCH (09:35)
[2020-01-10] MEDS: BUMEX 1 MG/4 ML VIAL IVP SCH ×2 (09:35→20:56)
[2020-01-10 09:55] LABS: ERYTHROCYTE SEDIMENTATION RATE 80 MM/HR (0-20)
[2020-01-10 11:24] VITALS: BP_SYST 115
[2020-01-10] MEDS: HYDROmorphone 1 MG INJ. 1 MG/ML AMPUL IM PRN (15:10)
[2020-01-10 15:25] VITALS: BP_SYST 115
[2020-01-10 21:00] VITALS: BP_SYST 98
[2020-01-10] MEDS: LEVOFLOXACIN 500 MG/D5W 100 ML IV SCH (23:37)
[2020-01-11 01:04] VITALS: BP_SYST 114
[2020-01-11] MEDS: HYDROmorphone 2 MG/ML VIAL IVP PRN ×6 (02:23→22:35)
[2020-01-11] MEDS: NORMAL SALINE 5 ML DISP.SYRIN IVF SCH ×6 (06:00→22:35)
[2020-01-11 06:27] LABS: BASOPHILS # (AUTO) 0.1 K/uL (0.0-0.2); BASOPHILS % (AUTO) 0.5 % (0.0-2.0); EOSINOPHILS # (AUTO) 0.5 K/uL (0.0-0.4); EOSINOPHILS % (AUTO) 4.5 % (0.0-4.0); HEMATOCRIT 33.6 % (36-48); HEMOGLOBIN 10.7 g/dL (12.0-16.0); LYMPHOCYTES # (AUTO) 2.2 K/uL (1.0-5.5); LYMPHOCYTES % (AUTO) 21.3 % (20.5-51.5); MEAN CORPUSCULAR HEMOGLOBIN 27 pg (27-31); MEAN CORPUSCULAR HGB CONC 32 % (32-36); MEAN CORPUSCULAR VOLUME 83 fL (79.0-98.0); MONOCYTES # (AUTO) 0.6 K/uL (0.0-1.0); MONOCYTES % (AUTO) 6.3 % (1.7-9.3); NEUTROPHILS # (AUTO) 6.8 K/uL (1.8-7.7); NEUTROPHILS % (AUTO) 67.4 % (40.0-70.0); PLATELET COUNT (AUTO) 302 K/uL (130-430); RED BLOOD CELL COUNT(AUTO) 4.03 MIL/uL (4.2-6.2); RED CELL DISTRIBUTION WIDTH 17.8 % (9.0-15.0); WHITE BLOOD COUNT (AUTO) 10.2 K/uL (4.8-10.8)
[2020-01-11 07:41] LABS: CALCIUM 8.2 mg/dL (8.4-11.0); CREATININE 0.88 mg/dL (0.55-1.30); POTASSIUM 3.6 mmol/L (3.5-5.1)
[2020-01-11 07:55] LABS: C-REACTIVE PROTEIN QUANT 5.2 mg/dL (0-0.5)
[2020-01-11 08:00] VITALS: BP_SYST 127
[2020-01-11 09:47] LABS: ERYTHROCYTE SEDIMENTATION RATE 70 MM/HR (0-20)
[2020-01-11] MEDS: BUMEX 1 MG/4 ML VIAL IVP SCH ×2 (10:17→21:53)
[2020-01-11] MEDS: POTASSIUM CHLORIDE 10 MEQ TAB.PRT.SR PO SCH (10:18)
[2020-01-11] MEDS: BALSAM PERU/CASTOR OIL 60 GM OINT...G. TP SCH (10:18)
[2020-01-11] MEDS: FERROUS SULFATE 325 MG TABLET.DR PO SCH ×2 (10:18→21:50)
[2020-01-11] MEDS: CALCIUM CARBONATE/VITAMIN D3 1 TAB TABLET PO SCH ×2 (10:18→21:50)
[2020-01-11] MEDS: POLYETHYLENE GLYCOL 3350, 17 GM/ POWD.PACK PO SCH (10:18)
[2020-01-11 16:59] VITALS: BP_SYST 122
[2020-01-11 21:00] VITALS: BP_SYST 126
[2020-01-12] MEDS: LEVOFLOXACIN 500 MG/D5W 100 ML IV SCH (00:12)
[2020-01-12 00:33] VITALS: BP_SYST 121
[2020-01-12] MEDS: HYDROmorphone 2 MG/ML VIAL IVP PRN ×4 (02:11→14:00)
[2020-01-12] MEDS: NORMAL SALINE 5 ML DISP.SYRIN IVF SCH ×4 (06:00→15:14)
[2020-01-12 06:25] LABS: BASOPHILS % (AUTO) 0.4 % (0.0-2.0); EOSINOPHILS # (AUTO) 0.4 K/uL (0.0-0.4); EOSINOPHILS % (AUTO) 4.1 % (0.0-4.0); HEMATOCRIT 33.3 % (36-48); HEMOGLOBIN 10.6 g/dL (12.0-16.0); LYMPHOCYTES # (AUTO) 2.2 K/uL (1.0-5.5); MEAN CORPUSCULAR HEMOGLOBIN 26 pg (27-31); MEAN CORPUSCULAR HGB CONC 32 % (32-36); MEAN CORPUSCULAR VOLUME 84 fL (79.0-98.0); MONOCYTES # (AUTO) 0.6 K/uL (0.0-1.0); MONOCYTES % (AUTO) 6.9 % (1.7-9.3); NEUTROPHILS % (AUTO) 64.6 % (40.0-70.0); PLATELET COUNT (AUTO) 297 K/uL (130-430); RED BLOOD CELL COUNT(AUTO) 3.99 MIL/uL (4.2-6.2); RED CELL DISTRIBUTION WIDTH 17.9 % (9.0-15.0); WHITE BLOOD COUNT (AUTO) 9.2 K/uL (4.8-10.8)
[2020-01-12 06:38] LABS: C-REACTIVE PROTEIN QUANT 5.4 mg/dL (0-0.5); CALCIUM 8.4 mg/dL (8.4-11.0); CREATININE 1.01 mg/dL (0.55-1.30); POTASSIUM 3.1 mmol/L (3.5-5.1)
[2020-01-12 07:55] VITALS: BP_SYST 104
[2020-01-12] MEDS: POTASSIUM CHLORIDE 10 MEQ TAB.PRT.SR PO SCH (09:25)
[2020-01-12] MEDS: POLYETHYLENE GLYCOL 3350, 17 GM/ POWD.PACK PO SCH (09:25)
[2020-01-12] MEDS: FERROUS SULFATE 325 MG TABLET.DR PO SCH (09:25)
[2020-01-12] MEDS: BUMEX 1 MG/4 ML VIAL IVP SCH (09:25)
[2020-01-12] MEDS: BALSAM PERU/CASTOR OIL 60 GM OINT...G. TP SCH (09:25)
[2020-01-12] MEDS: CALCIUM CARBONATE/VITAMIN D3 1 TAB TABLET PO SCH (09:25)
[2020-01-12 10:20] LABS: ERYTHROCYTE SEDIMENTATION RATE 70 MM/HR (0-20)
[2020-01-12] MEDS: ONDANSETRON HCL 4 MG/2 ML VIAL IVP PRN (10:30)
[2020-01-12 12:11] VITALS: BP_SYST 152
[2020-01-12 16:42] VITALS: BP_SYST 129
[2020-01-12 17:01] VITALS: BP_SYST 104
[2020-01-12] MEDS: HYDROmorphone 1 MG INJ. 1 MG/ML AMPUL IM PRN (17:15)
== END 2020-01-12 17:22 | DRG 602 ==
LOC: SED 21:03 → SMU 23:44
PROVIDERS: ADMIT Preventive Medicine Preventive Medicine/Occupational Environmental Medicine; ATTEND Preventive Medicine Preventive Medicine/Occupational Environmental Medicine
PROC: 02HV33Z Insertion of Infusion Device into Superior Vena Cava, Percutaneous Approach (ICD-10-PCS; principal; 2020-01-09)
PROC: B548ZZA Ultrasonography of Superior Vena Cava, Guidance (ICD-10-PCS; 2020-01-09)
DX: L03.116 Cellulitis of left lower limb (principal); E43 Unspecified severe protein-calorie malnutrition; Z68.45 Body mass index [BMI] 70 or greater, adult; L88 Pyoderma gangrenosum; F32.9 Major depressive disorder, single episode, unspecified; F41.9 Anxiety disorder, unspecified; E66.01 Morbid (severe) obesity due to excess calories; M81.0 Age-related osteoporosis without current pathological fracture; E83.51 Hypocalcemia; I87.8 Other specified disorders of veins; E87.6 Hypokalemia; G47.33 Obstructive sleep apnea (adult) (pediatric); Z20.828 Contact with and (suspected) exposure to other viral communicable diseases; D64.9 Anemia, unspecified; E78.1 Pure hyperglyceridemia; L98.499 Non-pressure chronic ulcer of skin of other sites with unspecified severity; R73.9 Hyperglycemia, unspecified; E88.09 Other disorders of plasma-protein metabolism, not elsewhere classified; Z88.6 Allergy status to analgesic agent; Z88.1 Allergy status to other antibiotic agents; Z88.0 Allergy status to penicillin; Z88.5 Allergy status to narcotic agent; Z88.8 Allergy status to other drugs, medicaments and biological substances
CPT/HCPCS: 36415; 71045; 73590-TC; 80048; 80053; 83605; 83735-TC; 83880; 84100-TC; 84484; 85025; 85379; 85651-TC; 86140; 87040-TC; 87070-TC; 87075-TC; 87081; 93005; 93970; 96365; 96375; 99285; C1751; J1170; J1956; J2270; J2405; J3490; J7060